=== PATIENT | female | born 1945 | race Caucasian/White ===

== ENCOUNTER 2025-03-15 23:10 | Inpatient (IN) | payer MEDICARE, SELFPAY ==
[2025-03-15] VITALS (7 sets, daily range): BP systolic 124–149; BP diastolic 56–78; BMI 37.2
[2025-03-15 16:30] LABS: Hematocrit 37.7 % (37.0-47.0); Hemoglobin 12.7 g/dL (12.0-16.0); Mean Corp Hgb Conc. 33.7 g/dL (33.0-37.0); Mean Corpuscular Volume 93.3 fL (81.0-99.0); Nucleated Red Blood Cells % 0 %; Platelet Count 170 10^3/uL (130-400); Red Cell Dist. Width 13.6 % (11.5-14.5)
[2025-03-15 16:53] LABS: Troponin I < 0.012 ng/ml
[2025-03-15 17:03] LABS: ALT (SGPT) 20 U/L (0-35); AST (SGOT) 20 U/L (14-36); Albumin 4.3 g/dl (3.5-5.0); Alkaline Phosphatase 69 U/L (38-126); Blood Urea Nitrogen 20 mg/dl (7-17); Calcium 9.8 mg/dl (8.4-10.2); Carbon Dioxide 27 mmol/L (22-30); Chloride 110 mmol/L (98-107); Glucose 83 mg/dl (70-99); Potassium 4.5 mmol/L (3.5-5.1); Sodium 141 mmol/L (135-145); Total Protein 7.0 g/dl (6.3-8.2); eGFR > 60.00
--- NOTE | 2025-03-15 20:19 | ED.GENMED ---
Addendum entered and electronically signed by Joseph Wade PA-C 03/16/25 00:23:
Patients PCP responded back via [employer] following admission. Quick background, she has had a chronic left upper lobe atelectasis and LA has been biopsy in the past. This is not new left upper lobe is completely obstructed and fibrotic > 3
years.Due to increase in size of the finding, she�s already scheduled to complete a PET as an outpatient.
Happy to talk to Pulm just let me know is seeing her. Please feel free to reach out on my cell [phone].
Original Note:
History of Present Illness
General
Chief Complaint: Swelling
Source: patient
Time Seen by Provider: 03/15/25 18:11
History of Present Illness
History of Present Illness:
79-year-old female with past medical history of Parkinson's disease presenting to the ER at the request of cardiothoracic surgery for evaluation after patient had echocardiogram and outpatient facility 2 days ago which showed a moderate to large
pericardial effusion, based off previous CT imaging in the past there was questionable concern for lung cancer and patient had noted worsening shortness of breath with intermittent lightheadedness so patient was advised to come to the ER to be
further evaluated with plan for admission and further evaluation with cardiothoracic surgery. At time of my exam patient states she overall feels pretty well, denies any chest pain, current shortness of breath, diaphoresis, lower extremity edema,
abdominal pain, nausea, vomiting. She cannot recall any recent illnesses, fevers or infectious symptoms. She denies any abnormal weight loss, night sweats. Patient does note for a while she had been dealing with pneumonia which she believes was
the abnormalities found on previous CT imaging and not masses/malignancy.
Past History
Past History
ED Past Medical History: Other (Parkinson's disease)
ED Past Surgical History: Brain
Social History
Tobacco: Non-smoker
Alcohol: Occasional
Drug: None
Personal:
Living: with family
Review of Systems
Review of Systems
All Other Systems: ROS reviewed and negative except as documented in HPI and ROS
Phy Exam
Physical Exam
Physical Exam:
GENERAL: Alert , in no apparent distress
EYE: conjunctiva clear
NECK: Supple, no significant adenopathy.
ENT: o/p clr, mmm.
CARDIAC: Regular rate and rhythm
LUNGS: Clear breath sounds bilaterally, no acute respiratory distress, no wheezes/rales/rhonchi
NEUROLOGICAL: Alert and oriented
SKIN: Warm and dry, skin intact.
MUSCULOSKELETAL: well perfused. Trace ankle edema, nonpitting
PSYCH: Normal and appropriate interaction.
Scores
Heart Failure Risk
Heart Failure Risk Score: Not Applicable
Heart Score for Chest Pain Patients
STEMI patient?: Not applicable
Withdrawal Assessment of Alcohol
Withdrawal Assessment Completed?: Not applicable
Course
Orders/Labs/Results
Orders:
Orders
03/15/25 16:03
Electrocardiogram (*1) Urgent
Reason for Study: Shortness of Breath
03/15/25 16:04
EKG- Treatment ONCE
03/15/25 16:22
CMP [Comprehensive Metabolic Panel] Urgent
Complete Blood Count/With Diff Urgent
NT-proBNP Urgent
Troponin I Urgent
03/15/25 18:13
CT Chest PE Study Urgent
Comment:
Reason For Exam: SOB,. ?lung cancer, known pericardial effusion,ARITA
Abnormal Lab Results
03/15/25
16:22
RBC 4.04 L 10^6/uL
(4.20-5.40)
MCH 31.4 H pg
(27.0-31.0)
Absolute Monos (auto) 0.7 H 10^3/uL
(0.1-0.6)
Lymphocytes % 20.3 L %
(20.5-51.1)
Monocytes % 12.2 H %
(1.7-9.3)
Eosinophils % 9.5 H %
(0-6)
Chloride 110 H mmol/L
(98-107)
BUN 20 H mg/dl
(7-17)
03/15/25 16:22
03/15/25 16:22
Vital Signs
Initial and Last Documented VS:
Initial Vital Signs
Temp Pulse Resp BP Pulse Ox
97.8 F 76 16 139/68 97
03/15/25 15:56 03/15/25 15:56 03/15/25 15:56 03/15/25 15:56 03/15/25 15:56
Last Documented Vital Signs
Temp Pulse Resp BP Pulse Ox
97.8 F 78 20 145/61 97
03/15/25 15:56 03/15/25 21:11 03/15/25 21:11 03/15/25 21:11 03/15/25 21:11
MDM/Problems Addressed
Differential Diagnosis Includes:
Pericardial Effusion
Tamponade
PE
Myocarditis
Pericarditis
Malignancy
Pneumonia
Viral syndrome
MDM/Problems Addressed:
79-year-old female presenting to the ER for evaluation of moderate to large pericardial effusion found on echocardiogram [address] surgery sent patient to the ER for further evaluation/imaging with plan for admission and will evaluate the
patient tomorrow for possible intervention. That may patient presently hemodynamically stable and in no acute distress and overall very well-appearing. Based off her symptoms/presentation will order CTA of the chest to rule out PE or other
pulmonary source. Cardiothoracic surgery was notified that patient did arrive to the emergency department and they will evaluate the patient in the morning. Disposition pending following CT imaging
*Radiology
Radiology exam reviewed: radiology read reviewed
*Pulse Oximetry
SaO2: 98
Oxygen Mode of Delivery: Room air
Patient hypoxic: no
*EKG
Heart Rate: 75
Rate: normal
Rhythm: sinus
*Slot Floorman Interpretation
Rate: normal
Rhythm: sinus
*Critical Care Note
Total Time (30-74mins, 75-104mins- exclusive of procedures): Not Applicable
Data Reviewed
Review of Other/Old Records Reveals: Labs, Records and Radiology Studies
Source: patient, records and physician
Patient Management
Discussion with other providers: Hospitalist, PCP and Line Builder
Escalation/DeEscalation of care consider admission/obs:
CT findings noted and discussed with the patient. Will likely need pulm consult and possible bronchoscopy for further evaluation. Notified CT surgery about CTA findings. Hospitalist team accepts for admission. PCP was also notified of findings
ED Attending Note
-
Portions of this chart may have been created with voice recognition software.� Occasional wrong word or��sound alike� substitutions may have occurred due to the inherent limitations of voice recognition software.
Discharge Plan
Departure
Patient Disposition: Admit
Date of Disposition: 03/15/25
Time of Disposition: 21:56
Presentation/result/management discussed w/ accepting MD/DO: Hospitalist
Discharge Problem:
Lung mass, Pericardial effusion
Referrals:
Bessie Monte DO [Family Provider, Internal Medicine]
Interventions
Interventions:
*Risk Screen - Suicide Last Done: 03/15/25 15:56
*General Assessment Last Done: 03/15/25 18:49
*Neglect/Abuse Screening Last Done: 03/15/25 15:56
*ED- Fall Risk Assessment Last Done: 03/15/25 18:49
*ED COVID-19 Vaccine History Last Done: 03/15/25 18:49
ED- Cardiac Assessment Last Done: 03/15/25 18:30
ED- Pulmonary Assessment Last Done: 03/15/25 18:30
ED-Skin Assessment Last Done: 03/15/25 18:30
Discharge Date and Time
Print Language: [place]LAND[place]
--- NOTE | 2025-03-15 22:35 | HPS.HSE ---
Addendum entered and electronically signed by Serge Gramajo DO 03/15/25 23:24:
Patient seen and examined independently. Agree with findings and plan as set forth by Siri Nagel PA-C.
Patient is a 79y F with PMH significant for Parkinson's disease who presents to ED for evaluation of abnormal Echo. Patient reports recent development of LE edema and some mild lightheadedness with activity. Patient underwent an outpatient Echo
which showed large pericardial effusion. She was referred to the ED for further evaluation and treatment. Patient denies any chest pain, cough, fevers or chills. CT scan was done in the ED this evening which shows large L mediastinal mass with
encasement of L pulmonary artery and upper lobe bronchus.
Ass:
Mediastinal Mass with Encasement of L Pulmonary Artery and Collapse of ALISHA
Large Pericardial Effusion
Parkinson's Disease
GERD
Plan:
Admit for further evaluation and treatment.
Send to [facility] for prior imaging / records.
History indicates ALISHA abnormality / mass dating back at last to 2021.
Pulmonary evaluation for additional recommendations.
Tissue biopsy with FOB versus IR.
Oncology evaluation.
CT Surgery consulted re: pericardial effusion. Hemodynamically stable at present.
Likely related to apparent malignant hilar / mediastinal process.
Original Note:
Family Physician
-
Family Physician: Bessie Monte
Chief Complaint
-
Lower Extremity Edema
History of Present Illness
Patient is a 79 y/o female past medical history of Parkinson's Disease and GERD who presents with lower extremity edema. Patient reports she recently started with increasing lower extremity. She was undergoing work-up which included an
echocardiogram. Patient was notified that she had a large pericardial effusion and was instructed to come to the emergency department for evaluation. Patient reports she occasional with have to stop and catch her breath but notes it very rare. She
denies any chest pain or palpitations.
Medical History
Past Medical History
Past Medical History: Reports Other
Additional Past Medical History:
Parkinson's Disease
GERD
Past Surgical History: Reports Other
Additional Past Surgical History:
Deep Brain Stimulator
Social History
Tobacco: Non-smoker
Alcohol: None
Personal:
Living: With Family
Family History
Family History: Not pertinent
Allergies / Home Medications
Allergies reflects when Allergies were last updated in [facility].
Home Medications with original date entered in [facility]
Allergy/Medication List:
Allergies
Allergy/AdvReac Type Severity Reaction Status Date / Time
No Known Allergies Allergy Unverified 03/15/25 15:55
Home Medications
furosemide 40 mg tablet 40 mg PO DAILYPRN PRN Edema 03/15/25
pantoprazole 40 mg tablet,delayed release 40 mg PO DAILY 03/15/25
Review of Systems
-
A 12 point ROS was completed and negative except as noted: Yes
Constitutional: Denies Fever or Weight Loss
Respiratory: Denies Cough
Cardiac: Denies Chest Pain or Palpitations
Physical Exam
Vital Signs
Vital Signs
Temp Pulse Resp BP Pulse Ox
97.8 F 76 21 132/72 98
03/15/25 15:56 03/15/25 22:15 03/15/25 22:15 03/15/25 22:00 03/15/25 22:00
Physical Exam
General: Comfortable and Conversant
HEENT: Anicteric and Moist mucous membranes
Respiratory: Clear and Non Labored Respirations
Cardiac: S1/S2 and Regular Rhythm
GI: Soft and Non Tender
Musculoskeletal: No Clubbing, No Cyanosis and Other (+2 pitting edema bilateral lower extremities)
Skin: Warm and Dry
Neuro: Awake, Alert, Oriented and Nonfocal/grossly intact
Psych: Calm
Laboratory Results
-
03/15/25 16:22
03/15/25 16:22
Laboratory Results
Total Bilirubin 0.6 mg/dl (0.2-1.3) 03/15/25 16:22
AST 20 U/L (14-36) 03/15/25 16:22
ALT 20 U/L (0-35) 03/15/25 16:22
Alkaline Phosphatase 69 U/L (38-126) 03/15/25 16:22
Troponin I < 0.012 ng/ml 03/15/25 16:[address] Scan:
No CTA evidence for an acute pulmonary thromboembolism.
Soft tissue mass centered at the left hilum in keeping with the reported history of lung cancer. This shows direct invasion into the left lateral mediastinum, encasement of the left main pulmonary artery, and occlusion of the left upper lobe
bronchi. Recommend direct correlation with previous outside imaging of the chest, which is not currently available.
Complete atelectasis of the left upper lobe.
Mediastinal lymphadenopathy, which is presumably metastatic.
Large pericardial effusion.
Data Reviewed
-
CT Scan: Report Reviewed by me
Lab Data: Labs Reviewed by me
Impression/Plan
-
Hilar Soft Tissue Mass with encasement of left main pulmonary artery and left upper lobe bronchi
Large Pericardial Effusion
-Consult CT Surgery, Pulmonary and Oncology
-Patient will likely need biopsy for diagnosis
-Check echocardiogram
-Attempt to obtain records from [facility] including echo from earlier this week and any prior Chest CTs
Parkinson's Disease s/p Deep Brain Stimulator
-Stable
GERD
-Continue Protonix
DVT proph: SCDs
Code Status: Full Code
[2025-03-16] VITALS (7 sets, daily range): BP systolic 93–133; BP diastolic 43–69; BMI 36.7
--- NOTE | 2025-03-16 01:45 | PTCARENOTE ---
Pt stood and pivoted from stretcher to bed upon arrival from ED. denies SOB. AAOx3. admission questions completed. NSR on monitor. trace lower extremity edema. call light in reach.
--- NOTE | 2025-03-16 06:36 | W.PN.UPDATE ---
Update Note
Progress Note Update
CARDIAC SURGERY ATTENDING:
(Full consult to follow)
It was my pleasure to meet with Mrs. Obdulia Black and her briefly in the ED. I have reviewed her CT scan. She has a large pericardial effusion with essentially all of the fluid being located posteriorly. There is very limited fluid on
the diaphragmatic and anterior surface of the pericardium. On the CT scan, the fluid appears homogenous. I will ask my cardiology and interventional radiology colleagues to evaluate for catheter-based drainage. Although there is some chronicity
to her mediastinal mass, this mass is encasing her left pulmonary artery and has resulted in collapse of her left upper lobe. It is significantly concerning for cancer despite her protracted history of obstructive and fibrotic left upper lobe
(greater than 3 years) with prior negative biopsies.
If catheter-based drainage is not deemed possible, I would consider subxiphoid pericardial window. It is my belief that this pericardial effusion is likely related to her left upper lobe process. PET scan and consideration for repeat biopsy should
be entertained.
Will continue to follow closely.
Thank you.
Joseph Dangelo MD
[2025-03-16] MEDS: PROTONIX 40 MG PO (07:34)
[2025-03-16 08:08] LABS: Hematocrit 38.2 % (37.0-47.0); Hemoglobin 12.8 g/dL (12.0-16.0); Mean Corp Hgb Conc. 33.5 g/dL (33.0-37.0); Mean Corpuscular Volume 94.3 fL (81.0-99.0); Nucleated Red Blood Cells % 0 %; Platelet Count 167 10^3/uL (130-400); Red Cell Dist. Width 13.7 % (11.5-14.5)
[2025-03-16 08:19] LABS: ALT (SGPT) 20 U/L (0-35); AST (SGOT) 20 U/L (14-36); Albumin 4.2 g/dl (3.5-5.0); Alkaline Phosphatase 61 U/L (38-126); Blood Urea Nitrogen 18 mg/dl (7-17); Calcium 9.8 mg/dl (8.4-10.2); Carbon Dioxide 29 mmol/L (22-30); Chloride 108 mmol/L (98-107); Estimated Creatinine Clearance 81 ml/min; Glucose 111 mg/dl (70-99); Potassium 4.4 mmol/L (3.5-5.1); Sodium 141 mmol/L (135-145); Total Protein 6.8 g/dl (6.3-8.2); eGFR > 60.00
[2025-03-16 08:20] LABS: INR 1.04; PT 14.1 Sec (11.4-14.6)
--- NOTE | 2025-03-16 09:18 | CON.PUL ---
Consultation
Consultation Request
Date/Time Consultation Requested: 03/16/25
Date/Time Consultation Performed: 03/16/25
Performing Provider: Breanna
Reason for Consultation: Hilar Mass
Medical History
-
History of Present Illness:
Patient is a 79-year-old female with previous history of Parkinson's disease, GERD presenting to ER for evaluation of abnormal echocardiogram. She had previously been complaining of lower extremity edema and lightheadedness with activity. She
had undergone outpatient echo with large pericardial effusion, sent to the ER. CT scan was done in the ED revealing large left-sided mediastinal mass with encasement of left pulmonary artery. She was previously seen at [facility] and prior
records indicate that this mass may have been evident dating back to 2021.
Per son, the patient does follow with Dr. La at [facility]. She underwent bronchoscopy some years ago and was biopsied negative. He notes that on prior CT scans there was disease in left upper lobe but he is not sure to what extent. He notes
that there was prior calcifications noted as well. Prior CT scans are unavailable for me to review. He does that the patient has had more progressive shortness of breath recently and lower extremity edema.
She is a lifelong non-smoker, denies family history of lung cancer. She has not been as compliant with her routine cancer screening including colonoscopies. Her last and only colonoscopy was at age 51. She has since stopped receiving mammograms
based on her age.
Past Medical History
Past Medical History: Other (see list below)
Social History
Tobacco: Non-smoker
Alcohol: None
Drug: None
Family History
Family History: Reviewed & Not Pertinent
Allergies / Home Medications
Allergies
Allergy/AdvReac Type Severity Reaction Status Date / Time
No Known Allergies Allergy Unverified 03/15/25 15:55
Home Medications
�Medication �Instructions �Recorded �Confirmed �Last Taken �Type
furosemide 40 mg tablet 40 mg PO DAILYPRN PRN Edema 03/15/25 03/15/25 Unknown History
pantoprazole 40 mg tablet,delayed 40 mg PO DAILY Gastrointestinal 03/15/25 03/15/25 Unknown History
release Issue
Review of Systems
-
History Source: Patient
All other systems: Negative unless noted
Vitals / Labs / Diagnostic Testing
Vital Signs
Temp Pulse Resp BP Pulse Ox
97.8 F 78 24 133/61 98
03/16/25 07:00 03/16/25 07:15 03/16/25 07:15 03/16/25 07:11 03/16/25 07:11
Lab Data
03/16/25 07:53
03/16/25 07:53
Laboratory Results
03/16/25
07:53
PT 14.1
INR 1.04
Diagnostic Testing:
Physical Exam
-
HEENT: Normocephalic, Anicteric and Moist Mucous Membranes
Cardiovascular: S1/S2 and Regular Rhythm
Respiratory: Clear and Non-Labored Respirations
GI: Soft, Non Distended and Non Tender
Neurology: Awake, Alert, Oriented and No Motor Deficits
Skin: Warm, Dry and Good Color
General: Comfortable and Other (NAD)
Assessment
-
Patient is a 79-year-old female with previous history of Parkinson's disease, GERD presenting to ER for evaluation of abnormal echocardiogram. She had previously been complaining of lower extremity edema and lightheadedness with activity. She
had undergone outpatient echo with large pericardial effusion, sent to the ER. CT scan was done in the ED revealing large left-sided mediastinal mass with encasement of left pulmonary artery. We are consulted for evaluation 03/16/25.
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
Large pericardial effusion
Suspected primary lung malignancy
Conditions present prior to admission
Parkinson's disease
GERD
Obesity
Plan
No oxygen was needed on admission, currently saturating >90% on RA
Prior history of lung disease is noted including--known history of ALISHA disease dating back as far as 2021, but stated could be about 10 years ago but they do not recall what was present then
Per son, the patient does follow with Dr. La at [facility]. She underwent bronchoscopy some years ago and was biopsied negative.
He notes that on prior CT scans there was disease in left upper lobe (ongoing) but he is not sure to what extent. He notes that there was prior calcifications noted as well.
Prior CT scans are unavailable for me to review. He does that the patient has had more progressive shortness of breath recently and lower extremity edema.
She is a lifelong non-smoker, denies family history of lung cancer.
She has not been as compliant with her routine cancer screening including colonoscopies. Her last and only colonoscopy was at age 51.
She has since stopped receiving mammograms based on her age.
Suspect patient has primary lung malignancy, based on calcifications could be NSCLC
ECHO obtained showing pericardial effusion, agree with drainage per CT which can be sent for cyto and staging
CTS following
CT obtained indicating enlarged mediastinal mass with obstruction of ALISHA and encasement of PA
I reviewed this with family--she would be a good candidate for stent placement and tumor debulking but given the complexity and nature of the mass, she would do well with tertiary referral for interventional evaluation. Her outpatient black top roller
is also an interventionalist, I will review the case with her to see if she prefer to patient transferred back to [facility]
Call placed, awaiting call back
Will need outpatient pulmonary evaluation for further steps including PET/CT
Reviewed with patient and family extensively at bedside, reviewed with care team as well
We will follow
Diagnostic Data
Chest X-Ray:
CT Scan: CHEST- Large soft tissue mass centered at the left hilum measuring 10.9 x 8.0 x 7.2 cm. This invades the left lateral aspect of the mediastinum and encases the left main pulmonary artery with resultant narrowing of the segmental and
subsegmental branches. The tumor occludes the left upper lobe bronchi and results in complete atelectasis/collapse of the left upper lobe. Extrinsic narrowing of the left lower lobe bronchi. No pleural effusion or pneumothorax. Subsegmental
atelectasis in the left lower lobe.
Echo:
PFT's:
Reports and relevant images were personally reviewed.
Total time spent on this consultation __80__ minutes which includes review of history, physical exam, medications, laboratory data, personal review of imaging, extensive review of outpatient records, discussion with care team and respiratory therapy.
--- NOTE | 2025-03-16 10:12 | CONSULT.CT ---
Consultation
-
Date/Time Consultation Requested: 03/16/25
Date/Time Consultation Performed: 03/16/25 10:15
Requesting Provider: Siri Nagel PA-C
Performing Provider: Neelam Pringle PA-C
Reason for Consultation: Large pericardial effusion, mediastinal mass
Patient History
Physicians
Family Physician: Dr. Bessie Monte MD.
Outpatient Delivery Aide: None
History of Present Illness
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
presented to [facility]'s emergency department on 03/15/2025.
Patient had an outpatient echocardiogram performed at [facility] and returned home. After echocardiogram was read a large pericardial effusion was seen without evidence of tamponade physiology. Patient was phoned and told to go to the
nearest emergency department. She has also been experiencing increasing lower extremity edema left greater than right. At this point patient presented to [facility]'s emergency department as stated above.
Further workup in the emergency department via CAT scan revealed no evidence of PE, large pericardial effusion, mediastinal mass invading into the left lateral mediastinum with encasement of the left main pulmonary artery and occlusion of the left
upper lobe bronchi causing complete atelectasis of the left upper lobe. Based on findings high suspicion for metastatic disease is suspected.
Patient was admitted for further workup. Subsequent consult to CT surgery was placed regarding large pericardial effusion and mediastinal mass occluding the left upper lobe bronchi.
Past Medical History
Parkinson's disease status post deep brain stimulator
GERD
Multiple pneumonias
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
Past Surgical History
Deep brain stimulator implanted in 2021 secondary to Parkinson's disease
Bronchoscopy 2018 performed at [facility]
Dental History
Noncontributory
Family History
Mother: at Age (83) and Cause of (Complications with CHF, also suffered with breast cancer)
Father: at Age (100) and Cause of (Natural causes)
Family Medical History: Cancer (Mother-breast)
Social History
Alcohol: None
Drug: None
Tobacco: Non-Smoker
Personal:
Living: With Spouse (Has 3 children)
Employment: Retired (Formally worked as a teacher)
Allergies
Allergy/AdvReac Type Severity Reaction Status Date / Time
No Known Allergies Allergy Unverified 03/15/25 15:55
Home Medications
�Medication �Instructions �Recorded �Confirmed �Type
furosemide 40 mg tablet 40 mg PO DAILYPRN PRN Edema 03/15/25 03/15/25 History
pantoprazole 40 mg tablet,delayed 40 mg PO DAILY Gastrointestinal 03/15/25 03/15/25 History
release Issue
Review of Systems
-
History Source: Patient
General: Denies Fever, Weight Gain, Weight Loss or Fatigue
HEENT: Denies Visual Changes, Dysphagia, Hoarseness or Sore Throat
Respiratory: Reports SOB and ARITA; Denies Asthma or PND
Cardiac: Reports Edema; Denies Chest Pain, CAD, Palpitations, Nausea, Vomiting or Diaphoresis
Abdomen/GI: Reports Reflux; Denies Abdominal Pain, Indigestion, Nausea, Vomiting, Constipation or BRBPR
: Denies Dysuria, Frequency, Incontinence, Urgency or Hematuria
Musculoskeletal: Reports Edema; Denies Myalgias or Arthralgias
Skin: Denies Itching or Rash
Neurological: Reports Dizzy; Denies CVA, TIA, Headaches, Syncope, Weakness or Seizures
Vascular: Denies Claudication or PVD
Physical Exam
Vital Signs
Temp 97.8 F 03/16/25 07:00
Temp route: Oral 03/16/25 07:00
Pulse 78 03/16/25 07:15
Rhythm: Normal sinus rhythm 03/16/25 01:32
Resp Rate 24 03/16/25 07:15
Blood pressure 133/61 03/16/25 07:11
Blood pressure extremity used: Left upper arm 03/15/25 23:35
Position: Lying 03/15/25 23:35
MAP (cuff-Shade Monitor) 80 03/16/25 07:11
SaO2 98 03/16/25 07:11
Oxygen Mode of Delivery Room air 03/16/25 01:32
Acceptable pain level during hospitalization? 0 03/15/25 15:56
Can the patient verbally communicate their pain? Yes 03/16/25 01:32
Actual Weight 200 lb 5 oz 03/16/25 00:21
Body Mass Index (BMI) 36.7 03/16/25 00:21
Labs
03/16/25 07:53
03/16/25 07:53
PT 14.1 Sec (11.4-14.6) 03/16/25 07:53
Troponin I < 0.012 ng/ml 03/15/25 16:22
Hef-O-Snkvxhxqlzm Pept 106 pg/ml 03/15/25 16:22
Diagnostic Studies
CT PE Study: 03/15/25
No CTA evidence for an acute pulmonary thromboembolism.
Soft tissue mass centered at the left hilum in keeping with the reported history of lung cancer. This shows direct invasion into the left lateral mediastinum, encasement of the left main pulmonary artery, and occlusion of the left upper lobe
bronchi. Recommend direct correlation with previous outside imaging of the chest, which is not currently available.
Complete atelectasis of the left upper lobe.
Mediastinal lymphadenopathy, which is presumably metastatic.
Large pericardial effusion.
Exam
General: Well Developed, Well Nourished, No Apparent Distress and Comfortable
HEENT: Normocephalic, Moist Mucous Membranes, Atraumatic, PERRLA and EOMI
Neck: Trachea Midline; Negative Carotid Bruit
Respiratory: Clear; Negative Wheezes, Crackles, Rhonchi or Accessory Muscle Use
Cardiac: S1/S2 and Regular Rhythm (/Sinus bradycardia ); Negative Murmur, Rub or Gallop
GI: Soft, Non Tender, Non Distended and Normal Bowel Sounds
Rectal: Deferred by Provider
Skin: Warm and Dry; Negative Rash
Neuro: AO x 3, No Motor Deficits and CN X-XII Intact
Extremities: Lower Level Edema (+2-3 L>R); Negative Upper Level Edema, Upper Level Cyanosis, Lower Level Cyanosis, Upper Level Clubbing or Lower Level Clubbing
Psych: Calm
Assessment / Plan
-
Assessment:
79-year-old female with PMH significant for:
Parkinson's disease status post deep brain stimulator
GERD
Multiple pneumonias
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
Now with newly diagnosed:
Large pericardial effusion
Mediastinal mass with encasement of left pulmonary artery and collapse of left upper lobe
Plan:
Patient's case was discussed with attending physician
Recommend drainage of pericardial effusion via catheter approach by cardiology/interventional radiology. Sending fluid for cytology and sampling.
Pulmonary and oncology workup
Tissue biopsy via bronchoscopy versus interventional radiology.
CT surgery will follow closely and remain available if catheter-based drainage is unsuccessful
--- NOTE | 2025-03-16 11:27 | W.PN.HOSP.TC ---
Addendum entered and electronically signed by Charla Hoskins MD 03/16/25 14:53:
I saw and evaluated the patient independently. I reviewed the resident�s note and agree with findings and plan as documented by Dr. Alves.
GENERAL: well developed, well nourished, female in no apparent distress--getting bedside echo
HEENT: NC/AT
HEART: regular rate and rhythm, +S1, +S2--distant heart hounds
LUNGS : clear to auscultation bilaterally anteriorly--limited
ABDOM: soft, nontender, nondistended, + bowel sounds
EXT: no cyanosis, clubbing-- 2+ LE edema pitting bilaterally--tender to touch
NEUROLOGIC: grossly intact
Pericardial effusion as seen on CT 03/15/2025 and outpatient echo--etiologies include possible malignancy (does have mass discussed below), infection, heart failure, rheumatologic, etc--apprec CT surgery--await bedside echo result--apprec IR--for
drainage 03/17/25 and cultures/cytology etc--would recommend the following: if path + then needs ONC for treatment options; if path - then would recommend transfer to [place] for upper lobe resection--'mass' could be worsening fibrotic
tissue/calcifications from previous recurrent pneumonias--bronch and/or direct biopsy would be difficult given discussion with all appropriate parties
History of multiple pneumonias with History of lung/mediastinal mass--pt does not have known lung cancer--in fact, multiple samples done as outpt have been neg--apprec pulm/IR--would attempt to obtain previous records from [facility]- Patient will have to
have PET outpatient in coordination with her outpt interventional architect manager--we do not do as inpatient, so will need to be rescheduled--further direction pending path as discussed above
GERD- Continue pantoprazole 40 mg p.o. daily
Parkinson's disease s/p deep brain stimulator--continue to monitor
DVT proph--SCDs
CODE STATUS-- Full code
Original Note:
Today's Communication/Plan
-
N.p.o. at midnight tonight in preparation for IR drainage of large pericardial effusion tomorrow 03/17/2025
Appreciate recs from our consultants: Pulmonology, oncology, cardiothoracic surgery, IR
Awaiting outside hospital records
Assessment / Plan
Assessment / Plan
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
03/15/2025 per recommendation from cardiac surgery after an outpatient echo at [facility] showed a large pericardial effusion. Other than increasing bilateral lower extremity 1+ edema, she is asymptomatic. CT chest 03/15/2025 findings
below. Cardiac surgery, IR, pulmonology, and oncology are following for management.
Chest CT 03/15/2025:
No CTA evidence for an acute pulmonary thromboembolism.
Soft tissue mass centered at the left hilum in keeping with the reported history of lung cancer. This shows direct invasion into the left lateral mediastinum, encasement of the left main pulmonary artery, and occlusion of the left upper lobe
bronchi. Recommend direct correlation with previous outside imaging of the chest, which is not currently available.
Complete atelectasis of the left upper lobe.
Mediastinal lymphadenopathy, which is presumably metastatic.
Large pericardial effusion.
#Pericardial effusion as seen on CT 03/15/2025 and outpatient echo
#Shortness of breath on exertion, transient
#History of multiple pneumonias
#History of lung cancer/mediastinal mass
Etiology for her pericardial effusion is most likely related to her known cancer, however could also be infectious, rheumatic, or cardiac in nature. Given that she is stable and asymptomatic currently, we will continue to monitor on telemetry until
her effusion can be drained by IR. We will also seek to obtain outside records and hold diuresis until s/p drainage.
- Cardiothoracic surgery, oncology, pulmonology, and IR following: Appreciate recs
--IR planning for catheter-based drainage tomorrow 03/17/2025
---NPO at midnight, patient not on AC
- Follow-up echo
- Follow-up repeat EKG
- Obtain outside records
- Note: We will not diurese, given high risk for post diuresis decreased cardiac output ISO known large pericardial effusion.
- Patient will have to have PET outpatient in coordination with her oncologist.
#GERD
- Continue pantoprazole 40 mg p.o. daily
#Parkinson's disease s/p deep brain stimulator
- Nothing to do, continue to monitor
DVT prophylaxis: SCDs
CODE STATUS: Full code
Anticipated Discharge: 24 - 48 hours (Pending pericardial effusion drainage and management)
Subjective/Interval History
-
Date of Service: March 16, 2025
-This morning, she is sitting comfortably in her chair with her Tab at bedside. She denies chest pain, dizziness, shortness of breath, lightheadedness, N/V, pain, or any other symptoms.
-In conversation with cardiothoracic surgery and IR, plan is to have a repeat echo inpatient today and place an IR drain for her pericardial effusion tomorrow at noon. This was relayed to the patient. She will be n.p.o. at midnight.
Objective Data
-
Labs:
Laboratory Results
03/16/25 03/16/25
07:53 10:41
WBC 5.2
Hgb 12.8
Hct 38.2 Pending
Plt Count 167
PT 14.1
INR 1.04
Sodium 141
Potassium 4.4
Chloride 108 H
Carbon Dioxide 29
BUN 18 H
Creatinine 0.6
Glucose 111 H Pending
Calcium 9.8
Total Bilirubin 0.8
AST 20
ALT 20
Alkaline Phosphatase 61
Vital Signs:
Vital Signs
Temp Pulse Resp BP Pulse Ox
97.8 F 62 13 131/60 98
03/16/25 11:08 03/16/25 10:15 03/16/25 10:15 03/16/25 10:00 03/16/25 10:15
I&O
03/15/25 03/16/25 03/17/25
06:59 06:59 06:59
Intake Total 720 / 720
Balance 720 / 720
Review of Systems
-
All other systems: Reviewed and negative
Musculoskeletal: Reports Edema (Bilateral lower extremity 1+ edema)
Physical Exam
-
General: Well Developed, Well Nourished, No Apparent Distress, Comfortable and Conversant
HEENT: Normocephalic, Atraumatic and Moist Mucous Membranes
Respiratory: Clear to Auscultation and Non Labored Respirations
Cardiac: Regular Rhythm and S1/S2
GI: Soft, Nontender and Nondistended
Musculoskeletal: No Clubbing, No Cyanosis, Edema, Right Lower Extrem and Edema, Left Lower Extrem
Skin: Warm and Dry
Neuro: AO x 3
Psych: Calm and Intact Judgement/Insight
Data Reviewed
-
CT Scan: Discussed with Physician
--- NOTE | 2025-03-16 11:54 | PTCARENOTE ---
Patient AAOx3, VSS. Up in chair eating with family. Patient making needs known, no complaints. Will continue to closely monitor.
[2025-03-16 13:11] LABS: Uric Acid 5.4 mg/dl (2.5-6.2)
--- NOTE | 2025-03-16 13:29 | CON.ONC ---
Consultation
-
Date Consultation Requested: 03/16/25
Date Consultation Performed: 03/16/25
Requesting Provider: Dr. Charla Hoskins
Performing Provider: Dr. Timothy Spence
Reason for Consultation: Hilar mass
Impression
Impression
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
Large pericardial effusion
Plan
Plan
Pt is considering intervention with Dr. Bessie Monte [facility] for stent and tumor debulking -appreciate pulmonary input
We will follow for pathology
Patient History
History of Present Illness
79yo F who presented after her OP echocardiogram at [facility] due to large pericardial effusion w/o tamponade. She had been undergoing evaluation for LE edema that has been ongoing for several months. Her CAT scan revealed no evidence of PE, however,
did show a large pericardial effusion, mediastinal mass invading into the left lateral mediastinum with encasement of the left main pulmonary artery and occlusion of the left upper lobe bronchi causing complete atelectasis of the left upper lobe.
She has been admitted for further evaluation. She has no hypoxia or tachycardia. Her CBC and CMP are without significant abnormalities.
Clinically, she denies fever, chills, cough, sob, alnais, chest pain, palpitations, n/v/d/c or abdominal pain. She denies unintentional weight loss, changes in appetite, or changes in bowel patterns. She denies any headache or neurological changes from
her baseline parkinson. She does have a brain stimulator but can have MRIs if she 'turns it off.'
Past-Medical/Surgical History
PMH Parkinson's disease, GERD
PSH brain stimulator
Social never smoker, denies ETOH or recrational drugs, retired teacher, lives with
family mother with breast cancer
Patient Medication
�Medication �Instructions �Recorded �Confirmed �Last Taken �Type
furosemide 40 mg tablet 40 mg PO DAILYPRN PRN Edema 03/15/25 03/15/25 Unknown History
pantoprazole 40 mg tablet,delayed 40 mg PO DAILY Gastrointestinal 03/15/25 03/15/25 Unknown History
release Issue
Active Medications
Generic Name Dose Route Start Last Admin
Trade Name Freq PRN Reason Stop Dose Admin
Acetaminophen 650 mg 03/16/25 00:27
Acetaminophen 325 Mg Tablet PO 04/13/25 00:26
Q4HPRN PRN
mild pain/ fever>100.5F
Pantoprazole Sodium 40 mg 03/16/25 08:00 03/16/25 07:34
Pantoprazole 40 Mg Delayed Release Tablet PO 04/13/25 07:59 40 mg
DAILY MAKI Administration
Review of Systems
-
ROS is notable for HPI, otherwise negative
Physical Exam
-
General: Well Nourished and No Apparent Distress
HEENT: Moist Mucous Membranes; Negative Jaundice
Cardiology: Normal Sinus Rhythm
Pulmonary: Clear
GI: Soft
Extremities: Pulses Present and Edema
Neurology: Non Focal
Skin: Warm
Psych: Calm
Labs
Lab Results
WBC 5.2 10^3/uL (4.8-10.8) 03/16/25 07:53
RBC 4.05 10^6/uL (4.20-5.40) L 03/16/25 07:53
Hgb 12.8 g/dL (12.0-16.0) 03/16/25 07:53
Hct 38.2 % (37.0-47.0) 03/16/25 07:53
MCV 94.3 fL (81.0-99.0) 03/16/25 07:53
MCH 31.6 pg (27.0-31.0) H 03/16/25 07:53
MCHC 33.5 g/dL (33.0-37.0) 03/16/25 07:53
RDW 13.7 % (11.5-14.5) 03/16/25 07:53
Plt Count 167 10^3/uL (130-400) 03/16/25 07:53
MPV 10.6 fL (7.4-10.4) H 03/16/25 07:53
Abs Immat Gran (auto) 0.0 10^3/uL (0-0.05) 03/16/25 07:53
Absolute Neuts (auto) 3.3 10^3/uL (1.4-6.5) 03/16/25 07:53
Absolute Lymphs (auto) 1.0 10^3/uL (1.2-3.4) L 03/16/25 07:53
Absolute Monos (auto) 0.5 10^3/uL (0.1-0.6) 03/16/25 07:53
Absolute Eos (auto) 0.5 10^3/uL (0-0.7) 03/16/25 07:53
Absolute Basos (auto) 0.0 10^3/uL (0-0.2) 03/16/25 07:53
Immature Gran % 0.2 % (0-0.5) 03/16/25 07:53
Neutrophils % 62.5 % (42.2-75.2) 03/16/25 07:53
Lymphocytes % 19.4 % (20.5-51.1) L 03/16/25 07:53
Monocytes % 8.7 % (1.7-9.3) 03/16/25 07:53
Eosinophils % 8.8 % (0-6) H 03/16/25 07:53
Basophils % 0.4 % (0-2) 03/16/25 07:53
Creatinine 0.6 mg/dL (0.6-1.0) 03/16/25 07:53
Vital Signs
Vital Signs
Temp Pulse Resp BP Pulse Ox
97.8 F 76 22 93/69 99
03/16/25 11:08 03/16/25 12:45 03/16/25 12:45 03/16/25 12:00 03/16/25 12:45
--- NOTE | 2025-03-16 14:03 | CM ---
Patient seen at IMU with physician and family present. Patient son Denver [phone] requested to be placed on contact list, patient confirmed she wanted that. Patient also present and confirmed that they live at [facility] in a
private home. Patient PCP is Dr. Bessie Phan and the [facility] on [address] [place] [address] in [place]. Patient plan is to return [place] [facility] when medically appropriate. CM will continue to follow for discharge planning needs.
Plan; pending medical treatment plan, TBD
[2025-03-16 14:32] LABS: LDH 186 U/L (120-246)
--- NOTE | 2025-03-16 21:00 | PTCARENOTE ---
assumed care of Pt after receiving change of shift report. Pt AA0x3. using call light accordingly. NSR on monitor. steady gait. assessment as documented. call light in reach.
[2025-03-17] VITALS (19 sets, daily range): BP systolic 65–146; BP diastolic 53–73; BMI 36.7
[2025-03-17 05:45] LABS: Hematocrit 36.4 % (37.0-47.0); Hemoglobin 12.2 g/dL (12.0-16.0); Mean Corp Hgb Conc. 33.5 g/dL (33.0-37.0); Mean Corpuscular Volume 94.8 fL (81.0-99.0); Platelet Count 162 10^3/uL (130-400); Red Cell Dist. Width 13.8 % (11.5-14.5)
[2025-03-17 06:08] LABS: Blood Urea Nitrogen 21 mg/dl (7-17); Calcium 9.2 mg/dl (8.4-10.2); Carbon Dioxide 25 mmol/L (22-30); Chloride 110 mmol/L (98-107); Estimated Creatinine Clearance 81 ml/min; Glucose 115 mg/dl (70-99); Magnesium 2.3 mg/dl (1.6-2.3); Potassium 4.5 mmol/L (3.5-5.1); Sodium 140 mmol/L (135-145); eGFR > 60.00
[2025-03-17] MEDS: PROTONIX 40 MG PO (08:25)
--- NOTE | 2025-03-17 09:22 | W.PN.PUL3 ---
Today's Communication / Plan
-
Extensive conversation wtih patient and son regarding next steps/potential options following procedure today, reviewed case and CT images with him personally
Agree with plan for pericardial fluid sampling, please send for cyto
They were in agreement for discharge planning post procedure observation
Outpatient FU with Dr La for next steps
Assessment
-
Patient is a 79-year-old female with previous history of Parkinson's disease, GERD presenting to ER for evaluation of abnormal echocardiogram. She had previously been complaining of lower extremity edema and lightheadedness with activity. She
had undergone outpatient echo with large pericardial effusion, sent to the ER. CT scan was done in the ED revealing large left-sided mediastinal mass with encasement of left pulmonary artery. We are consulted for evaluation 03/16/25.
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
Large pericardial effusion
Suspected primary lung malignancy
ARITA
Conditions present prior to admission
Parkinson's disease
GERD
Obesity
Plan
No oxygen was needed on admission, currently saturating >90% on RA
Prior history of lung disease is noted including--known history of ALISHA disease dating back as far as 2021, but stated could be about 10 years ago but they do not recall what was present then
Per son, the patient does follow with Dr. La at [place]. She underwent bronchoscopy some years ago and was biopsied negative. OP PET was reportedly negative
He notes that on prior CT scans there was disease in left upper lobe (ongoing) but he is not sure to what extent. He notes that there was prior calcifications noted as well.
Prior CT scans are unavailable for me to review. He does that the patient has had more progressive shortness of breath recently and lower extremity edema.
She is a lifelong non-smoker, denies family history of lung cancer.
She has not been as compliant with her routine cancer screening including colonoscopies. Her last and only colonoscopy was at age 51.
She has since stopped receiving mammograms based on her age.
Suspect patient has primary lung malignancy, based on calcifications could be NSCLC
ECHO obtained showing pericardial effusion, agree with drainage per CT which can be sent for cyto and staging
CTS following
IR consult for pericardial drain, send for cytology please
CT obtained indicating enlarged mediastinal mass with obstruction of ALISHA and encasement of PA
I reviewed this with family--she would be a good candidate for stent placement and tumor debulking but given the complexity and nature of the mass, she would do well with tertiary referral for interventional evaluation. Her outpatient fibre optic cable splicer
is also an interventionalist, I will review the case with her to see if she prefer to patient transferred back to [facility]
Reviewed case extensively with Dr La, IR, our team and hospitalist service. I then reviewed scenarios and options with son
Would recommend he obtain imaging to streamline within 1 health system--he will do that
They are in agreement for d/c planning post procedure and do not wish to stay here to wait for cyto results--we can call to let them know results when available
OP Onc follow up to be arranged as well
Will need outpatient pulmonary evaluation for further steps including PET/CT--to follow with Dr La
Reviewed with patient and family extensively at bedside, reviewed with care team as well
Discharge planning post procedure observation
Diagnostic Data
Chest X-Ray:
CT Scan: CHEST- Large soft tissue mass centered at the left hilum measuring 10.9 x 8.0 x 7.2 cm. This invades the left lateral aspect of the mediastinum and encases the left main pulmonary artery with resultant narrowing of the segmental and
subsegmental branches. The tumor occludes the left upper lobe bronchi and results in complete atelectasis/collapse of the left upper lobe. Extrinsic narrowing of the left lower lobe bronchi. No pleural effusion or pneumothorax. Subsegmental
atelectasis in the left lower lobe.
Echo:
PFT's:
Reports and relevant images were personally reviewed.
Total time spent on this consultation __58__ minutes which includes review of history, physical exam, medications, laboratory data, personal review of imaging, extensive review of outpatient records, discussion with care team and respiratory therapy.
Subjective Data
-
Date of Service:
Date of Service: March 17, 2025
Chief Complaint: Pulmonary Follow Up
Subjective:
No new complaints, stable on RA
and son at bedside
Planning for IR drain today
Objective Data
Data Reviewed
Vital Signs / I&O / Oxygen:
Vital Signs
Temp Pulse Resp BP Pulse Ox
97.5 F 60 19 109/57 100
03/17/25 07:20 03/17/25 02:15 03/16/25 13:00 03/17/25 02:00 03/17/25 03:14
Intake and Output
03/16/25 03/17/25 03/18/25
06:59 06:59 06:59
Intake Total 1620 / 1620
Balance 1620 / 1620
SaO2 100
Physical Exam
General: Comfortable and Other (NAD)
HEENT: Normocephalic, Anicteric and Moist Mucous Membranes
Cardiovascular: S1-S2 and Regular Rhythm
Respiratory: Clear and Non-Labored Respirations
GI: Soft, Non Distended and Non Tender
Neurology: Awake, Alert, Oriented and No Motor Deficits
Skin: Warm, Dry and Good Color
Labs/Micro/Reports
Lab Data
03/17/25 05:25
03/17/25 05:25
--- NOTE | 2025-03-17 10:12 | CM ---
Patient seen at bedside in IMU patient for IR, today. Patient possible for discharge pending medical treatment plan. At [facility] patient, with supports via wellness nursing at community. CM will continue to follow for discharge planning needs.
Plan; home with no needs; family supports.
--- NOTE | 2025-03-17 10:18 | W.PN.ONC2 ---
Today's Communication / Plan
-
follow for path
OP follow up will be arranged upon discharge
and son at bedside provided updates and questions answered
Impression
Impression
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
Large pericardial effusion
Plan
Plan
Pt is considering intervention with Dr. Bessie Monte [facility] for stent and tumor debulking -appreciate pulmonary input
CT surgery planning for pericardial drainage
We will follow for pathology
Subjective/Objective
Subjective
no new complaints
no hypoxia
Vital Signs:
Vital Signs
Temp Pulse Resp BP Pulse Ox
97.5 F 60 19 109/57 100
03/17/25 07:20 03/17/25 02:15 03/16/25 13:00 03/17/25 02:00 03/17/25 03:14
Lab Results:
Laboratory Data
WBC 5.9 10^3/uL (4.8-10.8) 03/17/25 05:25
Hgb 12.2 g/dL (12.0-16.0) 03/17/25 05:25
Plt Count 162 10^3/uL (130-400) 03/17/25 05:25
PT 14.1 Sec (11.4-14.6) 03/16/25 07:53
INR 1.04 03/16/25 07:53
eGFR > 60.00 03/17/25 05:25
Physical Exam
HEENT: No Jaundice
Cardiology: Normal Sinus Rhythm
Pulmonary: Other (diminshed LLL)
GI: Soft
Extremities: Pulses Present and Edema
Neuro: Non Focal
Orders
Orders
Orders From Last 24 Hours
03/16/25 12:40
Add On- LAB Routine
03/17/25 10:18
CT Abd/pel W Iv And Oral Contr Routine
--- NOTE | 2025-03-17 10:46 | PTCARENOTE ---
Patient AAOx3, no complaints. NPO. Awaiting IR procedure. VSS. Continuing to closely monitor.
--- NOTE | 2025-03-17 11:13 | W.PN.HOSP.TC ---
Addendum entered and electronically signed by Charla Hoskins MD 03/17/25 17:05:
I saw and evaluated the patient independently. I reviewed the resident�s note and agree with findings and plan as documented by Dr. Alves.
GENERAL: well developed, well nourished, female in no apparent distress
HEENT: NC/AT
HEART: regular rate and rhythm, +S1, +S2--distant heart hounds
LUNGS : clear to auscultation bilaterally anteriorly--limited
ABDOM: soft, nontender, nondistended, + bowel sounds
EXT: no cyanosis, clubbing-- 2+ LE edema pitting bilaterally--tender to touch
NEUROLOGIC: grossly intact
Pericardial effusion as seen on CT 03/15/2025 and outpatient echo--etiologies include possible malignancy (does have mass discussed below), infection, heart failure, rheumatologic, etc--apprec CT surgery--await bedside echo result--apprec IR--for
drainage 03/17/25 and cultures/cytology etc--would recommend the following: if path + then needs ONC for treatment options; if path - then would recommend transfer to [place] for upper lobe resection--'mass' could be worsening fibrotic
tissue/calcifications from previous recurrent pneumonias--bronch and/or direct biopsy would be difficult given discussion with all appropriate parties--effusion drained but drain left in--getting CT scans Chest/AB/Pelvis--transfer to IVU
History of multiple pneumonias with History of lung/mediastinal mass--pt does not have known lung cancer--in fact, multiple samples done as outpt have been neg--apprec pulm/IR--would attempt to obtain previous records from [facility]- Patient will have to
have PET outpatient in coordination with her outpt interventional sleep scientist--we do not do as inpatient, so will need to be rescheduled--further direction pending path as discussed above
GERD- Continue pantoprazole 40 mg p.o. daily
Parkinson's disease s/p deep brain stimulator--continue to monitor
DVT proph--SCDs
CODE STATUS-- Full code
hopeful d/c in AM after ECHO and CT scans all finished and drain removed
Original Note:
Today's Communication/Plan
-
Planned for IR catheter based drainage of pericardial effusion at noon today
Resume diet after, appreciate IR recs
Assessment / Plan
Assessment / Plan
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
2021, who presented to emergency department on 03/15/2025 per recommendation from cardiac surgery after an outpatient echo at [facility] showed a large pericardial effusion. Other than increasing bilateral lower extremity 1+ edema, she is
asymptomatic. CT chest 03/15/2025 findings below. Cardiac surgery, IR, pulmonology, and oncology are following for management.
Chest CT 03/15/2025:
No CTA evidence for an acute pulmonary thromboembolism.
Soft tissue mass centered at the left hilum in keeping with the reported history of lung cancer. This shows direct invasion into the left lateral mediastinum, encasement of the left main pulmonary artery, and occlusion of the left upper lobe
bronchi. Recommend direct correlation with previous outside imaging of the chest, which is not currently available.
Complete atelectasis of the left upper lobe.
Mediastinal lymphadenopathy, which is presumably metastatic.
Large pericardial effusion.
Cardiac Echo 03/16/2025:
1. Small left ventricle with mild LVH, septal straightening, ejection fraction 65 to 70%.
2. Mild to moderate mitral regurgitation with normal left atrium.
3. Aortic sclerosis without significant stenosis.
4. The right heart is normal without obvious right ventricular free wall diastolic collapse.
5. Moderate pericardial effusion without clear-cut evidence of hemodynamic compromise.
6. There are no prior studies available for comparison.
#Pericardial effusion as seen on CT 03/15/2025 and outpatient echo, s/p IR drain 03/17/2025
#Shortness of breath on exertion, transient
#History of multiple pneumonias
#History of mediastinal mass
Etiology for her pericardial effusion is most likely related to her known cancer, however could also be infectious, rheumatic, or cardiac in nature. Given that she is stable and asymptomatic currently, we will continue to monitor on telemetry until
her effusion can be drained by IR. We will also seek to obtain outside records and hold diuresis until s/p drainage. She is scheduled for IR drainage at noon today, 03/17. Per CTS, she will need repeat echo after, and then drain removal prior to
discharge.
- Cardiothoracic surgery, oncology, pulmonology, and IR following: Appreciate recs
--IR planning for catheter-based drainage this afternoon, 03/17/2025
---NPO until s/p IR drainage; ADAT after
---She is not on AC, nothing to hold/resume
---PER CTS, repeat Echo tomorrow 03/18 s/p IR drain; if unremarkable, remove IR drain with IR 03/18
- Echo as above; EKG showing low voltage QRS (expected iso pericardial effusion)
- Obtain outside records
- Note: We will not diurese, given high risk for post diuresis decreased cardiac output ISO known large pericardial effusion.
- Patient will have to have PET outpatient in coordination with her oncologist
#GERD
- Continue pantoprazole 40 mg p.o. daily
#Parkinson's disease s/p deep brain stimulator
- Nothing to do, continue to monitor
DVT prophylaxis: SCDs
CODE STATUS: Full code
Anticipated Discharge: Within 24 hours (Pending repeat echo & IR drain removal )
Subjective/Interval History
-
Date of Service: March 17, 2025
-NAEON. This morning, she's eagerly anticipating IR procedure at noon. NPO in preparation for that. She denies SOB, chest pain, lightheadedness, or any other symptoms. Son is bedside.
Objective Data
-
Labs:
Laboratory Results
03/17/25
05:25
WBC 5.9
Hgb 12.2
Hct 36.4 L
Plt Count 162
Sodium 140
Potassium 4.5
Chloride 110 H
Carbon Dioxide 25
BUN 21 H
Creatinine 0.6
Glucose 115 H
Calcium 9.2
Vital Signs:
Vital Signs
Temp Pulse Resp BP Pulse Ox
97.5 F 77 19 135/59 97
03/17/25 07:20 03/17/25 11:00 03/16/25 13:00 03/17/25 10:00 03/17/25 10:22
I&O
03/16/25 03/17/25 03/18/25
06:59 06:59 06:59
Intake Total 1620 / 1620
Balance 1620 / 1620
Review of Systems
-
History Source: Patient
All other systems: Reviewed and negative
Physical Exam
-
General: Well Developed, Well Nourished, No Apparent Distress, Comfortable and Conversant
HEENT: Normocephalic, Atraumatic and Moist Mucous Membranes
Respiratory: Clear to Auscultation and Non Labored Respirations
Cardiac: Regular Rhythm and S1/S2
GI: Soft, Nontender and Nondistended
Musculoskeletal: No Clubbing, No Cyanosis and No Edema
Skin: Warm and Dry
Neuro: AO x 3
Psych: Calm and Intact Judgement/Insight
--- NOTE | 2025-03-17 13:26 | W.PN.UPDATE ---
Update Note
Progress Note Update
6 Fr catheter was placed into pericardial effusion, yielding 130 cc of blood tinged fluid. Sent for C+S, cytology.
[2025-03-17] MEDS: OMNIPAQUE 50 ML PO (14:27)
--- NOTE | 2025-03-17 14:35 | PTCARENOTE ---
Patient returned from IR with left chest drain. 160ml blood tinged fluid emptied upon arrival to unit. Patient c/o back pain from position required to lay on IR table. NSR with occasional PVCs. RA 99%. BP stable. Patient drowsy but arousable and
oriented. Patient beginning oral contrast now. Will closely monitor.
[2025-03-17 14:37] LABS: Body Fluid Granulocytes 0 %
[2025-03-17] MEDS: TYLENOL 650 MG PO ×2 (15:12→20:18)
--- NOTE | 2025-03-17 22:49 | PTCARENOTE ---
Received pt from IMU RN via wheelchair into room 2253 @ approx 1930. pt ambulated into room. AAOx3, VSS. Monitor placed on pt, SR, HR 80-90's. pt oriented to room and call [facility]. PRN Tylenol administered per pt request for pain 310 at pericardial
drain site, reports that it is worse with deep breathing or movement. pt reports relief with Tylenol. Encouraged pt to call RN with any questions/concerns. Call [facility] within reach.
[2025-03-18] MEDS: ZOFRAN 4 MG IV (02:29)
[2025-03-18] MEDS: TYLENOL 1000 MG PO (02:29)
[2025-03-18 02:39] VITALS: BP 120/59
[2025-03-18 02:46] VITALS: BMI 36.4
[2025-03-18 03:06] LABS: Hematocrit 39.4 % (37.0-47.0); Hemoglobin 13.5 g/dL (12.0-16.0); Mean Corp Hgb Conc. 34.3 g/dL (33.0-37.0); Mean Corpuscular Volume 92.3 fL (81.0-99.0); Nucleated Red Blood Cells % 0 %; Platelet Count 165 10^3/uL (130-400); Red Cell Dist. Width 13.3 % (11.5-14.5)
[2025-03-18 03:29] LABS: ALT (SGPT) 17 U/L (0-35); AST (SGOT) 18 U/L (14-36); Albumin 3.9 g/dl (3.5-5.0); Alkaline Phosphatase 63 U/L (38-126); Blood Urea Nitrogen 19 mg/dl (7-17); Calcium 9.1 mg/dl (8.4-10.2); Carbon Dioxide 23 mmol/L (22-30); Chloride 111 mmol/L (98-107); Estimated Creatinine Clearance 81 ml/min; Glucose 164 mg/dl (70-99); Potassium 4.2 mmol/L (3.5-5.1); Sodium 140 mmol/L (135-145); Total Protein 6.3 g/dl (6.3-8.2); eGFR > 60.00
[2025-03-18] MEDS: DILAUDID 0.25 MG IV (03:54)
--- NOTE | 2025-03-18 04:52 | PTCARENOTE ---
Pt reporting pain at pericardial drain site as 8/10, especially while taking a deep breath or with movement, as well as nausea. Lauren Tineo, FEED BLENDER made aware and ordered Extra strength Tylenol and Zofran. Administered with no relief. FEED BLENDER ordered
one time dose of IV Dilaudid. VSS. pt reports having relief.
--- NOTE | 2025-03-18 08:09 | W.PN.HOSP.TC ---
Today's Communication/Plan
-
hopeful d/c home after drain pulled
Assessment / Plan
Assessment / Plan
pt is a 79 year old female
Pericardial effusion as seen on CT 03/15/2025 and outpatient echo--etiologies include possible malignancy (does have mass discussed below), infection, heart failure, rheumatologic, etc--apprec CT surgery- 1st ECHO 03/16 with EF 65-70% with moderate
pericardial effusion--2nd ECHO 03/17 with EF 60-65% and no evidence of pericardial effusion-apprec IR--s/pdrainage 03/17/25 for 130mls and cultures/cytology pending--would recommend the following: if path + then needs ONC for treatment options; if
path - then would recommend follow up at [place] for upper lobe resection--'mass' could be worsening fibrotic tissue/calcifications from previous recurrent pneumonias--bronch and/or direct biopsy would be difficult given discussion with all appropriate
parties-- CT scans Chest/AB/Pelvis show spot on pancreatic head, will defer to ONC next steps (MRI, PET, etc)--plan would be d/c home if cleared by all parties (IR, CT, etc)--drain would need to be pulled first--unclear if another echo needs to be
done today
History of multiple pneumonias with History of lung/mediastinal mass--pt does not have known lung cancer--in fact, multiple samples done as outpt have been neg--apprec pulm/IR--would attempt to obtain previous records from [facility]- Patient will have to
have PET outpatient in coordination with her outpt interventional automobile club information clerk--we do not do as inpatient, so will need to be rescheduled--further direction pending path as discussed above
GERD- Continue pantoprazole 40 mg p.o. daily
Parkinson's disease s/p deep brain stimulator--continue to monitor
DVT proph--SCDs
CODE STATUS-- Full code
hopeful d/c today
Anticipated Discharge: Today
Subjective/Interval History
-
Date of Service: March 18, 2025
Patient states she had a bad night--pain from pericardial drain--nursing reports no drainage overnight
Objective Data
-
Labs:
Laboratory Results
03/18/25
02:45
WBC 11.3 H
Hgb 13.5
Hct 39.4
Plt Count 165
Sodium 140
Potassium 4.2
Chloride 111 H
Carbon Dioxide 23
BUN 19 H
Creatinine 0.6
Glucose 164 H
Calcium 9.1
Total Bilirubin 0.8
AST 18
ALT 17
Alkaline Phosphatase 63
Vital Signs:
max temp for 24 hours
03/17/25
12:01
Temp 98.3 F
Vital Signs
Temp Pulse Resp BP Pulse Ox
97.8 F 74 20 120/59 94
03/18/25 02:39 03/18/25 07:15 03/18/25 02:39 03/18/25 02:39 03/18/25 02:39
I&O
03/17/25 03/18/25 03/19/25
06:59 06:59 06:59
Intake Total 1620 / 1620
Output Total 260 / 260
Balance 1620 / 1620 -260 / -260
Review of Systems
-
All other systems: Reviewed and negative
Respiratory: Reports Trouble Breathing (said had trouble catching her breath)
Cardiac: Reports Chest Pain (likely from drain)
Physical Exam
-
General: Well Developed, Well Nourished and No Apparent Distress
HEENT: Normocephalic and Atraumatic; Negative Oxygen
Respiratory: Clear to Auscultation; Negative Wheezes or Rhonchi
Cardiac: Regular Rhythm, S1/S2 and Other (pericardial drain with scant fluid noted); Negative Murmur
GI: Soft, Nontender, Nondistended and Normal Bowel Sounds
Musculoskeletal: No Clubbing, No Cyanosis and No Edema
Skin: Warm
Neuro: Awake
Psych: Calm
[2025-03-18 08:25] VITALS: BP 124/57
[2025-03-18] MEDS: PROTONIX 40 MG PO (08:35)
--- NOTE | 2025-03-18 09:40 | W.PN.UPDATE ---
Update Note
Progress Note Update
Drain to be pulled today. Recommend outpatient echo in 1 week.
[2025-03-18] MEDS: TYLENOL 650 MG PO (10:49)
[2025-03-18 12:16] VITALS: BP 121/53
[2025-03-18] MEDS: COLCHICINE 0.6 MG PO (14:21)
[2025-03-18 15:41] VITALS: BP 126/53
--- NOTE | 2025-03-18 17:12 | PTCARENOTE ---
Interventional radiologist came in and removed Pt's pericardial drain, Pt aislinn well. L anterior chest/axillary dsg, beneath L breast, D+I.
--- NOTE | 2025-03-19 07:30 | W.DCSUMMARY ---
Discharge Summary
Discharge Data
Date of Admission: 03/15/25
Date of Discharge: 03/18/25
-
Pending Results: Yes
Additional Pending Results:
Pathology from pericardial effusion drainage
Hospital Course
Primary care physician : Bessie Monte
Principal Discharge diagnosis : Pericardial effusion
Chronic Discharge diagnosis : History of multiple pneumonias with lung/mediastinal mass, gastroesophageal reflux disease, Parkinson's disease with status post deep brain stimulator
Hospital Course : Patient was a 79-year-old female with a history of Parkinson's disease and reflux who presented with lower extremity edema. She was undergoing workup as an outpatient which included an echocardiogram. It was found that she had a
large pericardial effusion and was instructed to come to the emergency department. She stated that she occasionally has to stop and catch her breath but notes that it is rare. CT scan confirms pericardial effusion. Patient was admitted.
Problem #1: Pericardial effusion. Patient was admitted and seen in consultation by CT surgery and interventional radiology. Etiologies included possible malignancy, infection, heart failure, rheumatologic. First echocardiogram done 03/16 showed an
ejection fraction of 65 to 70% with a moderate pericardial effusion. Second echocardiogram done 03/17 showed an EF of 60 to 65% and no evidence of the effusion after drainage was performed. 130 mL of fluid was removed. The drain was left in place.
No drainage happened from [id number]. Interventional radiology did discontinue the drain and the patient was able to be discharged. She will need an outpatient echocardiogram in 1 week. Fluid studies from the pericardial effusion were noted. There
were no signs of infection. Pathology is pending.
Problem #2: History of multiple pneumonias with lung/mediastinal mass. Patient has had a known lung mass for approximately 10 years. She does not have known lung cancer in fact multiple samples done as an outpatient have been negative. Pulmonary
was consulted. CAT scan of the chest done here shows no evidence for pulmonary embolism. Soft tissue mass centered at the left hilum which show direct invasion of the left lateral mediastinum, encasement of the left main pulmonary artery, and
occlusion of the left upper lobe bronchi were noted. As a result, there was complete atelectasis of the left upper lobe. There is mediastinal lymphadenopathy also present. Plan as outlined at discharge from our standpoint includes: If path is
negative then would recommend follow-up at [place] for upper lobe resection or further evaluation of this mass. If the path is positive then she will need to be referred to oncology for treatment options. Also as part of the workup, patient had CT
scans of the abdomen and pelvis there was a 1.6 x 0.8 cm low-attenuation focus of the head of the pancreas. This should be discussed with her primary and a nonemergent follow-up MRI is recommended.
Problem #3: All other medical issues. These include gastroesophageal reflux disease, Parkinson's disease status post deep brain stimulator. These medical issues were stable during her hospitalization. Medications were continued as able.
Patient is stable for discharge home at this time. If there are any questions regarding this dictation or her hospital stay, please do not hesitate to call. Our office number is [phone].
Time for discharge 33 minutes.
Procedure findings:
PERICARDIOCENTESIS IMPRESSION: Successful CT guided drainage catheter placement into a pericardial effusion, yielding 130 mL of blood tinged fluid.
Important imaging findings :
CT CHEST IMPRESSION:
No CTA evidence for an acute pulmonary thromboembolism.
Soft tissue mass centered at the left hilum in keeping with the reported history of lung cancer. This shows direct invasion into the left lateral mediastinum, encasement of the left main pulmonary artery, and occlusion of the left upper lobe
bronchi. Recommend direct correlation with previous outside imaging of the chest, which is not currently available.
Complete atelectasis of the left upper lobe.
Mediastinal lymphadenopathy, which is presumably metastatic.
Large pericardial effusion.
CT ABDOMEN/PELVIS IMPRESSION:
No residual pericardial effusion identified. Trace left pleural effusion has developed.
Small sliding hiatal hernia.
Small hepatic cysts.
Cholelithiasis.
1.6 x 0.8 cm low-attenuation focus in the head of the pancreas. Consider nonemergent follow-up MRI characterization.
Tiny nonobstructing renal calculi. 1.4 cm right renal cyst.
Mild diverticulosis. No evidence of acute diverticulitis. Minor colonic fecal burden.
Trace ascites. Right uterine body fibroid measuring 4.4 cm. Left ovarian simple nonenhancing cyst measuring 2.2 cm.
Discharge Plan
-
Patient Disposition: Home (Routine Discharge)
Discharge Diagnosis/Procedures: Pericardial effusion s/p IR drainage 03/17/2025, history of multiple pneumonias with lung/mediastinal mass, gastroesophageal reflux disease, Parkinson's disease status post deep brain stimulator
Condition: Good
Diet: Regular
Activity: No restrictions
Driving Restrictions: As prior to admission
Bathing Restrictions: None
Blood Work: CBC with differential and CMP in 1 week
Others Tests: Repeat echo in 1 week
Activity Restrictions/Additional Instructions:
Please discussed the results of your CAT scans with either oncology or your primary care physician--they were obtained as part of the workup for the effusion
echo in 1 week
Referrals:
Bessie Monte DO [Family Provider, Internal Medicine] - in one week
Joseph Dangelo MD [Active, Cardiac Surgery] - in one to two weeks
Referral Note: Follow-up with cardiac surgery, repeat echo in 1 week
Prescriptions:
New
acetaminophen 325 mg Tablet
650 mg PO Q4HPRN PRN (Reason: mild pain/ fever>100.5F) Qty: 0 0RF
Continued
furosemide 40 mg tablet
40 mg PO DAILYPRN PRN (Reason: Edema)
pantoprazole 40 mg tablet,delayed release (DR/EC)
40 mg PO DAILY
Discharge Orders:
Discharge Patient (As Directed); Ordered 03/18/25
Ordered By: Charla Hoskins
Discharge Date and Time
Discharge Date/Time: 03/18/25 17:55
Print Language: CITIZEN OF [place]
== END 2025-03-18 17:55 | disposition home or self-care (01) | DRG 314 ==
LOC: IVU 23:10
PROVIDERS: Emergency Medicine; Nurse Practitioner Family; Physician Assistant Medical; Radiology Vascular & Interventional Radiology; ADMITTING PHYSICIAN Hospitalist; ATTENDING PHYSICIAN Internal Medicine; CONSULT PHYSICIAN Internal Medicine; CONSULT PHYSICIAN Internal Medicine Hematology & Oncology; CONSULT PHYSICIAN Thoracic Surgery (Cardiothoracic Vascular Surgery); EMERGENCY PHYSICIAN Emergency Medicine; FAMILY PHYSICIAN Internal Medicine Critical Care Medicine
PROC: 0W9D30Z Drainage of Pericardial Cavity with Drainage Device, Percutaneous Approach (ICD-10-PCS; 2025-03-17)
DX: I31.39 Other pericardial effusion (noninflammatory) (principal); J98.59 Other diseases of mediastinum, not elsewhere classified; J98.11 Atelectasis; G20.A1 Parkinson's disease without dyskinesia, without mention of fluctuations; K21.9 Gastro-esophageal reflux disease without esophagitis; R59.0 Localized enlarged lymph nodes; R91.8 Other nonspecific abnormal finding of lung field; I70.0 Atherosclerosis of aorta; J44.89 Other specified chronic obstructive pulmonary disease; I34.0 Nonrheumatic mitral (valve) insufficiency; E66.9 Obesity, unspecified; K44.9 Diaphragmatic hernia without obstruction or gangrene; K76.89 Other specified diseases of liver; K80.20 Calculus of gallbladder without cholecystitis without obstruction; N28.1 Cyst of kidney, acquired; K57.30 Diverticulosis of large intestine without perforation or abscess without bleeding; D25.9 Leiomyoma of uterus, unspecified; Z82.49 Family history of ischemic heart disease and other diseases of the circulatory system; Z80.3 Family history of malignant neoplasm of breast; Z87.01 Personal history of pneumonia (recurrent); Z96.82 Presence of neurostimulator; Z68.36 Body mass index [BMI] 36.0-36.9, adult; Z85.118 Personal history of other malignant neoplasm of bronchus and lung
CPT/HCPCS: 49406; 71275; 74177; 80048; 80053; 82150; 82945; 83615; 83735; 83880; 83986; 84157; 84478; 84484; 84550; 85025; 85027; 85610; 87015; 87070; 87116; 87205; 88112; 88305; 88341; 88342; 89051; 93005; 93306; 93308; 99152; 99153; 99285; Q9967

== ENCOUNTER → 2025-04-11 06:30 | Outpatient (REF) | payer MEDICARE, SELFPAY ==
[2025-04-11] VITALS (13 sets, daily range): BP systolic 73–138; BP diastolic 29–73
[2025-04-11 06:57] LABS: Hematocrit 36.1 % (37.0-47.0); Hemoglobin 12.1 g/dL (12.0-16.0); Mean Corp Hgb Conc. 33.5 g/dL (33.0-37.0); Mean Corpuscular Volume 90.7 fL (81.0-99.0); Nucleated Red Blood Cells % 0 %; Platelet Count 242 10^3/uL (130-400); Red Cell Dist. Width 13.2 % (11.5-14.5)
[2025-04-11 07:04] LABS: INR 1.02; PT 13.7 Sec (11.4-14.6)
[2025-04-11 07:29] LABS: ALT (SGPT) 37 U/L (0-35); AST (SGOT) 24 U/L (14-36); Albumin 3.6 g/dl (3.5-5.0); Alkaline Phosphatase 81 U/L (38-126); Blood Urea Nitrogen 19 mg/dl (7-17); Calcium 9.5 mg/dl (8.4-10.2); Carbon Dioxide 29 mmol/L (22-30); Chloride 107 mmol/L (98-107); Glucose 114 mg/dl (70-99); Potassium 4.6 mmol/L (3.5-5.1); Sodium 140 mmol/L (135-145); Total Protein 6.4 g/dl (6.3-8.2); eGFR > 60.00
== END ==
LOC: RADI 06:30
PROVIDERS: ATTENDING PHYSICIAN Internal Medicine Critical Care Medicine; OTHER PHYSICIAN Physician Assistant; REFERRING PHYSICIAN Internal Medicine Hematology & Oncology
DX: D3A.8 Other benign neuroendocrine tumors (principal); R91.1 Solitary pulmonary nodule; R16.0 Hepatomegaly, not elsewhere classified
CPT/HCPCS: 36415; 47000; 76942; 80053; 85025; 85610; 88307; 88333; 88341; 88342; 99152; 99153

== ENCOUNTER → 2025-04-20 14:45 | Outpatient (REF) | payer MEDICARE, SELFPAY | LOC: RCS 14:45 | PROVIDERS: ATTENDING PHYSICIAN Internal Medicine Hematology & Oncology; FAMILY PHYSICIAN Internal Medicine Critical Care Medicine | DX: C34.12 Malignant neoplasm of upper lobe, left bronchus or lung (principal) | CPT/HCPCS: 93306 ==

== ENCOUNTER → 2025-05-06 08:02 | Outpatient (REF) | payer MEDICARE, SELFPAY | LOC: RCS 08:02 | PROVIDERS: ATTENDING PHYSICIAN Internal Medicine Hematology & Oncology; FAMILY PHYSICIAN Internal Medicine Critical Care Medicine | DX: C34.12 Malignant neoplasm of upper lobe, left bronchus or lung (principal) | CPT/HCPCS: 93306 ==

== ENCOUNTER → 2025-05-08 15:18 | Outpatient (REF) | payer MEDICARE, SELFPAY | LOC: RAD 15:18 | PROVIDERS: ATTENDING PHYSICIAN Internal Medicine Critical Care Medicine | DX: E07.9 Disorder of thyroid, unspecified (principal) | CPT/HCPCS: 76536 ==

== ENCOUNTER → 2025-05-16 14:48 | Outpatient (REF) | payer MEDICARE, SELFPAY | LOC: RCS 14:48 | PROVIDERS: ATTENDING PHYSICIAN Internal Medicine Hematology & Oncology; FAMILY PHYSICIAN Internal Medicine Critical Care Medicine | DX: C34.12 Malignant neoplasm of upper lobe, left bronchus or lung (principal); I34.0 Nonrheumatic mitral (valve) insufficiency; I31.39 Other pericardial effusion (noninflammatory) | CPT/HCPCS: 93308; 93321; 93325 ==

== ENCOUNTER → 2025-06-03 11:07 | Outpatient (REF) | payer MEDICARE, SELFPAY | LOC: RCS 11:07 | PROVIDERS: ATTENDING PHYSICIAN Internal Medicine Hematology & Oncology; FAMILY PHYSICIAN Internal Medicine Critical Care Medicine | DX: C7A.098 Malignant carcinoid tumors of other sites (principal) | CPT/HCPCS: 93306 ==

== ENCOUNTER → 2025-06-13 15:05 | Outpatient (REF) | payer MEDICARE, SELFPAY | LOC: RCS 15:05 | PROVIDERS: ATTENDING PHYSICIAN Internal Medicine Hematology & Oncology; FAMILY PHYSICIAN Internal Medicine Critical Care Medicine | DX: C7A.098 Malignant carcinoid tumors of other sites (principal); C78.7 Secondary malignant neoplasm of liver and intrahepatic bile duct | CPT/HCPCS: 93308 ==

== ENCOUNTER → 2025-06-27 10:19 | Outpatient (REF) | payer MEDICARE, SELFPAY | LOC: RCS 10:19 | PROVIDERS: ATTENDING PHYSICIAN Internal Medicine Hematology & Oncology; FAMILY PHYSICIAN Internal Medicine Critical Care Medicine | DX: I31.39 Other pericardial effusion (noninflammatory) (principal); C7A.098 Malignant carcinoid tumors of other sites; C78.7 Secondary malignant neoplasm of liver and intrahepatic bile duct | CPT/HCPCS: 93308; 93321; 93325 ==

== ENCOUNTER → 2025-07-11 07:18 | Outpatient (REF) | payer MEDICARE, SELFPAY | LOC: RCS 07:18 | PROVIDERS: ATTENDING PHYSICIAN Internal Medicine Hematology & Oncology; FAMILY PHYSICIAN Internal Medicine Critical Care Medicine | DX: C7A.098 Malignant carcinoid tumors of other sites (principal); C78.7 Secondary malignant neoplasm of liver and intrahepatic bile duct | CPT/HCPCS: 93306 ==

== ENCOUNTER 2025-07-13 15:22 | Inpatient (IN) | payer MEDICARE, SELFPAY ==
[2025-07-13] VITALS (7 sets, daily range): BP systolic 112–164; BP diastolic 59–109; BMI 37.3; BMI 36.7
[2025-07-13 13:39] LABS: Hematocrit 38.7 % (37.0-47.0); Hemoglobin 13.1 g/dL (12.0-16.0); Mean Corp Hgb Conc. 33.9 g/dL (33.0-37.0); Mean Corpuscular Volume 91.5 fL (81.0-99.0); Nucleated Red Blood Cells % 0 %; Platelet Count 146 10^3/uL (130-400); Red Cell Dist. Width 13.3 % (11.5-14.5)
[2025-07-13 14:00] LABS: Blood Urea Nitrogen 17 mg/dl (7-17); Calcium 9.3 mg/dl (8.4-10.2); Carbon Dioxide 28 mmol/L (22-30); Chloride 106 mmol/L (98-107); Estimated Creatinine Clearance 83 ml/min; Glucose 98 mg/dl (70-99); Sodium 138 mmol/L (135-145); eGFR > 60.00
[2025-07-13 14:02] LABS: Troponin I < 0.012 ng/ml
--- NOTE | 2025-07-13 14:13 | HPS.HSE ---
Addendum entered and electronically signed by Onesimo Blevins MD 07/13/25 16:52:
Correction- patient on hormonal therapy.
Addendum entered and electronically signed by Onesimo Blevins MD 07/13/25 16:49:
This is an addendum to H&P written by Temitope Gallegos on 07/13/2025. �Patient seen and examined independently with MECHANICAL OPERATOR.
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
echocardiogram and was referred to the hospital by CT surgery. �Shortness of breath and lightheadedness
Vital signs unremarkable.
Labs unremarkable. �Echo from 07/11 shows EF of 60 to 65%, large circumferential pericardial effusion without evidence of tamponade physiology.
Patient with recurrent enlarged pericardial effusion in the setting of lung cancer. �CT surgery planning on pericardial window tomorrow. �N.p.o. past midnight.
Original Note:
Family Physician
-
Family Physician:
Chief Complaint
-
abnormal out patient echo
History of Present Illness
Patient is a 79-year-old female with past medical history significant for Parkinson's disease, GERD and lung cancer with malignant pericardial effusion who presented to [facility] for evaluation for abnormal out patient echo. Patient with recent
hospitalization in 03/2025 for pericardial effusion following and out patient abnormal echo. Following hospitalization patient was diagnosed with lung cancer and has been receiving biweekly echocardiograms to monitor pericardial effusion. Patient
reports last echo was completed on Thursday07/10/2025, oncology referred her to CT surgery who then requested she come to hospital for admission. Patient does endorse exertional dyspnea and lightheadedness. Denies any fevers, chest pain,
palpitations, nausea, vomiting, constipation, diarrhea or urinary symptoms.
Medical History
Past Medical History
Past Medical History: Reports Other
Additional Past Medical History:
Parkinson's disease
GERD
lung cancer with suspected malignant pericardial effusion
Past Surgical History: Reports Other
Additional Past Surgical History:
deep brain stimulator
ovarian cyst removal
Social History
Tobacco: Non-smoker
Alcohol: None
Personal:
Living: With Family
Employment: Retired
Family History
Family History: Not pertinent
Allergies / Home Medications
Allergies reflects when Allergies were last updated in [facility].
Home Medications with original date entered in [facility]
Allergy/Medication List:
Allergies
Allergy/AdvReac Type Severity Reaction Status Date / Time
No Known Allergies Allergy Verified 07/13/25 12:31
Home Medications
calcium carbonate (Tums) 200 mg PO DAILY 07/13/25
cholecalciferol (vitamin D3) 25 mcg (1,000 unit) tablet (Vitamin D3) 25 mcg PO DAILY 07/13/25
clotrimazole 1 % topical cream 1 applic topical BID feet 07/13/25
cyclosporine 0.05 % eye drops 1 drp BOTH EYES Q12H 07/13/25
lotilaner 0.25 % eye drops (Xdemvy) 1 drp BOTH EYES Q12H 07/13/25
oxybutynin chloride 5 mg tablet 5 mg PO DAILY 07/13/25
pantoprazole 40 mg tablet,delayed release 40 mg PO DAILY 07/13/25
Review of Systems
-
History Source: Patient
Constitutional: Reports Chills; Denies Fever
EENT: Denies Sore Throat
Respiratory: Reports Trouble Breathing (exertional dyspnea ); Denies Cough or Hemoptysis
Cardiac: Denies Chest Pain, Diaphoresis, Palpitations or Syncope
Abdomen/GI: Denies Abdominal Pain, Nausea, Vomiting or Diarrhea
: Denies Dysuria, Frequency or Urgency
Musculoskeletal: Denies Joint Pain
Skin: Denies Rash
Neurological: Reports Dizzy; Denies Headache, Weakness or Numbness
Physical Exam
Vital Signs
Vital Signs
Temp Pulse Resp BP Pulse Ox
98.0 F 52 15 164/109 97
07/13/25 12:26 07/13/25 14:08 07/13/25 13:30 07/13/25 13:00 07/13/25 13:30
Physical Exam
General: Well Developed, Well Nourished, No Apparent Distress, Comfortable, Conversant and Obese
HEENT: NormoCephalic, Moist mucous membranes, PERRLA, Nose Appears Normal and Ears Appear Normal
Respiratory: Wheezes and Non Labored Respirations
Cardiac: Regular Rhythm; No Murmur, Rub, Gallop or Peripheral Edema
GI: Soft, Non Tender, Non Distended and Normal Bowel Sounds
Musculoskeletal: No Clubbing and No Cyanosis
Skin: Warm and IV/Catheter Site
Neuro: Awake and AO x 3
Psych: Calm and Intact Judgment/Insight
Laboratory Results
-
07/13/25 13:30
07/13/25 13:30
Laboratory Results
Total Bilirubin Cancelled 07/13/25 13:30
AST Cancelled 07/13/25 13:30
ALT Cancelled 07/13/25 13:30
Alkaline Phosphatase Cancelled 07/13/25 13:30
Troponin I < 0.012 ng/ml 07/13/25 13:30
Data Reviewed
-
Medical Tests (Nuc Med, Echo, EKG etc): Report Reviewed by me (EKG: SINUS BRADYCARDIA WITH PREMATURE ATRIAL COMPLEXES LOW VOLTAGE QRS LATERAL INFARCT , AGE UNDETERMINED)
Lab Data: Labs Reviewed by me
Impression/Plan
-
IMPRESSION/PLAN:
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
patient with abnormal outpatient ECHO on Thursday07/11/2025, recommended by CT surgery to come to ED to be admitted for pericardial window
labs unremarkable
EKG: SINUS BRADYCARDIA WITH PREMATURE ATRIAL COMPLEXES
LOW VOLTAGE QRS
LATERAL INFARCT , AGE UNDETERMINED
- Admit to IVU
- Consult CT surgery
- NPO at midnight for pericardial window tomorrow
#GERD
- continue Protonix
#Parkinson's disease
s/p brain stimulator
- stable
Code status: full code
DVT prophylaxis: SCDs
--- NOTE | 2025-07-13 14:15 | W.PN.UPDATE ---
Update Note
Progress Note Update
CARDIAC SURGERY ATTENDING:
FULL CONSULT TO FOLLOW
Mrs. 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
to liver/bone (well-differentiated neuroendocrine tumor, WHO grade 2), multiple pneumonias with mediastinal mass collapsing her left upper lobe, gastroesophageal reflux disease, pancreatic divisum with pancreatic cyst in the pancreatic head, and
prior pericardial effusion in March 2025.
Her index pericardial effusion was drained via catheter drainage. This was a bloody effusion at the time. She remained stable and was discharged from [facility] 3 days later. She obtained an outpatient PET scan. And subsequently
underwent liver biopsy. A follow-up echocardiogram was obtained on 07/11/2025 that demonstrated recurrence of a large, circumferential pericardial effusion. Her LVEF is 60 to 65%. She has mild mitral valve regurgitation. There is no evidence of
current tamponade physiology.
Given the recurrence of her pericardial effusion, I would recommend that the patient undergo surgical pericardial window. In terms of approach, we discussed both a robotic assisted thorascopic approach versus a traditional subxiphoid approach. We
will plan for potential intervention tomorrow, 07/14/2025. I reviewed the surgical plan with the patient and her family. We discussed her pathology, the proposed operative interventions, the associated perioperative risks (including lung/cardiac
injury, phrenic nerve injury, bleeding, and infection), discussed the expected in-hospital postprocedural course, and reviewed the expected outpatient recovery. All questions were answered to the best of my abilities. The patient is agreeable to
proceed.
Thank you for the opportunity participate in the care of this kind patient.
Joseph Dangelo MD
[phone]
--- NOTE | 2025-07-13 15:04 | ED.GENMED ---
History of Present Illness
<Melba Medina PA-C - Last Filed: 07/13/25 15:07>
General
Chief Complaint: Breathing Problem
Time Seen by Provider: 07/13/25 13:04
History of Present Illness
History of Present Illness:
Audrey is a 79-year-old female with past medical history of lung cancer and recurrent pericardial effusions requiring drainage who had a outpatient echocardiogram that shows increased pericardial effusion and was sent in by her cardiothoracic
surgeon. She reports increasing shortness of breath with exertion. Offers no other complaints.
Past History
<Melba Medina PA-C - Last Filed: 07/13/25 15:07>
Past History
ED Past Medical History: Other (Parkinson's disease)
ED Past Surgical History: Brain
Social History
Tobacco: Non-smoker
Alcohol: Occasional
Drug: None
Personal:
Living: with family
Phy Exam
<Melba Medina PA-C - Last Filed: 07/13/25 15:07>
General Physical Exam
General Presentation: well appearing and no apparent distress
General Skin: warm and dry
General Habitus: normal
General Mental: alert
General Hydration: appears well hydrated
ENT Exam
ENT Exam: EOMI, pharynx normal, neck supple and normocephalic
Eye Exam
Eye Exam: PERRL, cornea clear and conjunctiva normal
Cardiovascular Exam
Cardiovascular Exam: regular rate/rhythm, no edema, no murmur and normal peripheral pulses
Pulmonary Exam
Pulmonary Exam: lungs clear, no respiratory distress, no rales, no crackles, no rhonchi, no stridor, no wheezing and no cough
Gastrointestinal Exam
Gastrointestinal Exam: normal bowel sounds, non tender, soft, no organomegaly, no pulsatile mass and non distended
Neurological Exam
Neurological Exam: alert, oriented x3, no motor deficits and speech normal
Musculoskeletal Exam
Musculoskeletal Exam: full ROM and no edema
Skin Exam
Skin Exam: normal color, warm/dry, no rash and no petechia
Psychiatric Exam
Psychiatric Exam: normal mood/affect
Scores
<Melba Medina PA-C - Last Filed: 07/13/25 15:07>
Heart Failure Risk
Heart Failure Risk Score: Not Applicable
Course
<Melba Medina PA-C - Last Filed: 07/13/25 15:07>
Orders/Labs/Results
Orders:
Orders
07/13/25 12:12
EKG [Electrocardiogram (*1)] Urgent
Reason for Study: Shortness of Breath
EKG- Treatment ONCE
07/13/25 13:30
Basic Metabolic Panel Urgent
Complete Blood Count/With Diff Urgent
NT-proBNP Urgent
Troponin I Urgent
07/13/25 14:17
Electrocardiogram (*1) Urgent
Reason for Study: Abnormal EKG
EKG- Treatment ONCE
07/13/25 14:32
ANESTHESIA CONSULT Routine
Consulting Provider: Tyron Joseph
Consult for:: Other reason
Was physician already notified: Yes
Reason for consult: pre-op CT surgery
07/13/25 14:33
* Blood Bank Products Routine
Blood Bank Products: *Packed RBC Leuko (PRBC's
Quantity: 1
Transfuse Today: Hold Periop CT Surgery
Is product needed for scheduled surgery?: Yes
Expected Surgery Date: TOMORROW
Reason: Other
Other reason: cardiothoracic surgery
VTE Contraindication Routine
VTE Mechanical Device Contraindication: Surgical Contraindication
Pharmocologic Contraindication: Medical Contraindication
OR/Surgery Prep As Directed
Type of Prep: shower or bathe patient with 4% CHG night before surgery.
Comment: DOS: cleanse pt with 2% CHG wipes. Complete clip/prep for scheduled surgery
07/13/25 14:34
Type+Screen Routine
07/13/25 14:36
Rx Incentive Spirometry [RESP] Routine
Frequency: q1h
Comment: instruction and assessment for postop 10 times x q1hr
07/13/25 14:37
Pft Spirometry At Bedside [RESP] Routine
Special Instructions: pre-operative cardiothoracic surgery
07/13/25 14:56
Admit/Transfer Patient As Directed
Co-Sign Provider:
Level of Care: Inpatient admission
Assign to:: IVU
Physician / Group: Onesimo Blevins
Diagnosis: pericardial effusion, lung cancer
Reason for Hospitalization: pericardial effusion, lung cancer
Expected length of stay greater than two midnights?: Yes
ELOS- Estimated Length of Stay in days: 3
I certify the patient meets the requirements for IP care: Yes
PRN Pain Medication Management As Directed
May give lesser potent ordered pain med per pt: Yes
preference::
Protocol:: Medication orders for pain may be administered in a
manner that supports deferring to patient preference
when the pt is:
- Requesting an ordered lesser potent pain medication.
Least to most potent pain medications are defined
as: acetaminophen < NSAID < tramadol < opioids
(morphine, oxycodone, hydromorphone).
- Requesting a lesser dose of the same medication IF
ORDERED.
- Requesting a less intrusive route of administration
if both routes are prescribed by the provider (PO <
IV).
07/13/25 14:58
Code Status As Directed
Resuscitation Status: Full Code
07/14/25 06:00
Electrocardiogram (*1) IN AM
Reason for Study: Other
Other Reason for Exam: pre-operative cardiothoracic surgery
NPO
Allow oral meds: Yes
Allow clear liquids: No
NPO for procedure after (time): MIDNIGHT
Basic Metabolic Panel IN AM
Complete Blood Count/No Diff IN AM
Glycohemoglobin (HgbA1c) IN AM
[id number]-Scbfqdd IN AM
PTT IN AM
Prothrombin Time IN AM
Bupivacaine Mpf 0.25% [Sensorcaine-Mpf 0.25% Vial] 30 ml EPINEPHrine PF [Adrenalin] 0.15 mg Dexamethasone Sod Phos Pf [Decadron] 3 mg Syringe [Syringe Non-Pump] 0 ml INJ ONCE@0600,0601
CeFAZolin 2 GRAM [Ancef] 2 grams in 10 ml IV CVOR@0600,0700
Activity As Directed
Activity Level: As Tolerated
Notify MD As Directed
Notify physician if: Contact physician if patient has received any of the following agents within the previous
5 days:
Warfarin (Coumadin) Clopidogrel (Plavix)
Dabigatran (Pradaxa) Ticagrelor (Brillinta)
Rivaroxiban (Xarelto) Prasugrel (Effient)
Apixaban (Eliquis) Cilostazol (Pletal)
Enoxaparin (Lovenox) Pentoxifylline (Trental)
Edoxaban (Savaysa) Dipyridamole/Aspirin (Aggrenox)
Notify MD As Directed
Notify physician if: patient received or is scheduled/ordered to receive within 24 hours prior to surgery any:
- angiotension converting enzyme (MAGNO) inhibitors
- angiotension receptor blockers (ARB)
including combination products containing one of these agents.
Patient Education As Directed
Type: [facility]
Comment: pre-operative teaching. Give patient/family [facility] education material
Patient scheduled for CT Surgery As Directed
Type of surgery: RA pericardial window
Date of scheduled surgery: 07/14/25
Discontinue Heparin drip if ordered: patient navigator to OR
Weight As Directed
Frequency: Once
Comment: record patient's height and weight
Abnormal Lab Results
07/13/25
13:30
MPV 10.8 H fL
(7.4-10.4)
Absolute Lymphs (auto) 1.0 L 10^3/uL
(1.2-3.4)
Lymphocytes % 18.6 L %
(20.5-51.1)
Monocytes % 10.6 H %
(1.7-9.3)
Eosinophils % 6.5 H %
(0-6)
07/13/25 13:30
07/13/25 13:30
Vital Signs
Initial and Last Documented VS:
Initial Vital Signs
Temp Pulse Resp BP Pulse Ox
98.0 F 58 18 112/76 97
07/13/25 12:26 07/13/25 12:26 07/13/25 12:26 07/13/25 12:26 07/13/25 12:26
Last Documented Vital Signs
Temp Pulse Resp BP Pulse Ox
98.0 F 53 14 164/109 97
07/13/25 12:26 07/13/25 15:00 07/13/25 15:00 07/13/25 13:00 07/13/25 15:06
Toñolt;Darshan Arciniega, - Last Filed: 07/13/25 16:47>
Orders/Labs/Results
Orders:
Orders
07/13/25 12:12
EKG [Electrocardiogram (*1)] Urgent
Reason for Study: Shortness of Breath
EKG- Treatment ONCE
07/13/25 13:30
Basic Metabolic Panel Urgent
Complete Blood Count/With Diff Urgent
NT-proBNP Urgent
Troponin I Urgent
07/13/25 14:17
Electrocardiogram (*1) Urgent
Reason for Study: Abnormal EKG
EKG- Treatment ONCE
07/13/25 14:32
ANESTHESIA CONSULT Routine
Consulting Provider: Tyron Joseph
Consult for:: Other reason
Was physician already notified: Yes
Reason for consult: pre-op CT surgery
07/13/25 14:33
* Blood Bank Products Routine
Blood Bank Products: *Packed RBC Leuko (PRBC's
Quantity: 1
Transfuse Today: Hold Periop CT Surgery
Is product needed for scheduled surgery?: Yes
Expected Surgery Date: TOMORROW
Reason: Other
Other reason: cardiothoracic surgery
VTE Contraindication Routine
VTE Mechanical Device Contraindication: Surgical Contraindication
Pharmocologic Contraindication: Medical Contraindication
OR/Surgery Prep As Directed
Type of Prep: shower or bathe patient with 4% CHG night before surgery.
Comment: DOS: cleanse pt with 2% CHG wipes. Complete clip/prep for scheduled surgery
07/13/25 14:34
Type+Screen Routine
07/13/25 14:36
Rx Incentive Spirometry [RESP] Routine
Frequency: q1h
Comment: instruction and assessment for postop 10 times x q1hr
07/13/25 14:37
Pft Spirometry At Bedside [RESP] Routine
Special Instructions: pre-operative cardiothoracic surgery
07/13/25 14:56
Admit/Transfer Patient As Directed
Co-Sign Provider:
Level of Care: Inpatient admission
Assign to:: IVU
Physician / Group: Onesimo Blevins
Diagnosis: pericardial effusion, lung cancer
Reason for Hospitalization: pericardial effusion, lung cancer
Expected length of stay greater than two midnights?: Yes
ELOS- Estimated Length of Stay in days: 3
I certify the patient meets the requirements for IP care: Yes
PRN Pain Medication Management As Directed
May give lesser potent ordered pain med per pt: Yes
preference::
Protocol:: Medication orders for pain may be administered in a
manner that supports deferring to patient preference
when the pt is:
- Requesting an ordered lesser potent pain medication.
Least to most potent pain medications are defined
as: acetaminophen < NSAID < tramadol < opioids
(morphine, oxycodone, hydromorphone).
- Requesting a lesser dose of the same medication IF
ORDERED.
- Requesting a less intrusive route of administration
if both routes are prescribed by the provider (PO <
IV).
07/13/25 14:58
Code Status As Directed
Resuscitation Status: Full Code
07/14/25 06:00
Electrocardiogram (*1) IN AM
Reason for Study: Other
Other Reason for Exam: pre-operative cardiothoracic surgery
NPO
Allow oral meds: Yes
Allow clear liquids: No
NPO for procedure after (time): MIDNIGHT
Basic Metabolic Panel IN AM
Complete Blood Count/No Diff IN AM
Glycohemoglobin (HgbA1c) IN AM
Cvjtq-Hjln-Zaudasq IN AM
PTT IN AM
Prothrombin Time IN AM
Bupivacaine Mpf 0.25% [Sensorcaine-Mpf 0.25% Vial] 30 ml EPINEPHrine PF [Adrenalin] 0.15 mg Dexamethasone Sod Phos Pf [Decadron] 3 mg Syringe [Syringe Non-Pump] 0 ml INJ ONCE@0600,0601
CeFAZolin 2 GRAM [Ancef] 2 grams in 10 ml IV CVOR@0600,0700
Activity As Directed
Activity Level: As Tolerated
Notify MD As Directed
Notify physician if: Contact physician if patient has received any of the following agents within the previous
5 days:
Warfarin (Coumadin) Clopidogrel (Plavix)
Dabigatran (Pradaxa) Ticagrelor (Brillinta)
Rivaroxiban (Xarelto) Prasugrel (Effient)
Apixaban (Eliquis) Cilostazol (Pletal)
Enoxaparin (Lovenox) Pentoxifylline (Trental)
Edoxaban (Savaysa) Dipyridamole/Aspirin (Aggrenox)
Notify MD As Directed
Notify physician if: patient received or is scheduled/ordered to receive within 24 hours prior to surgery any:
- angiotension converting enzyme (MAGNO) inhibitors
- angiotension receptor blockers (ARB)
including combination products containing one of these agents.
Patient Education As Directed
Type: [facility]
Comment: pre-operative teaching. Give patient/family [facility] education material
Patient scheduled for CT Surgery As Directed
Type of surgery: RA pericardial window
Date of scheduled surgery: 07/14/25
Discontinue Heparin drip if ordered: patient navigator to OR
Weight As Directed
Frequency: Once
Comment: record patient's height and weight
Abnormal Lab Results
07/13/25
13:30
MPV 10.8 H fL
(7.4-10.4)
Absolute Lymphs (auto) 1.0 L 10^3/uL
(1.2-3.4)
Lymphocytes % 18.6 L %
(20.5-51.1)
Monocytes % 10.6 H %
(1.7-9.3)
Eosinophils % 6.5 H %
(0-6)
07/13/25 13:30
07/13/25 13:30
Vital Signs
Initial and Last Documented VS:
Initial Vital Signs
Temp Pulse Resp BP Pulse Ox
98.0 F 58 18 112/76 97
07/13/25 12:26 07/13/25 12:26 07/13/25 12:26 07/13/25 12:26 07/13/25 12:26
Last Documented Vital Signs
Temp Pulse Resp BP Pulse Ox
98.0 F 53 14 164/109 97
07/13/25 12:26 07/13/25 15:00 07/13/25 15:00 07/13/25 13:00 07/13/25 15:06
<Melba Medina PA-C - Last Filed: 07/13/25 15:07>
MDM/Problems Addressed
Differential Diagnosis Includes:
Discussed case with cardiothoracic surgery who request patient be admitted to the IVU for planned robotic pericardial window tomorrow. EKG obtained shows shows sinus bradycardia with PACs and low voltage QRS. Discussed case with the hospitalist
who will admit the patient.
<Melba Medina PA-C - Last Filed: 07/13/25 15:07>
*Pulse Oximetry
SaO2: 97
Oxygen Mode of Delivery: Room air
Patient hypoxic: no
*Critical Care Note
Total Time (30-74mins, 75-104mins- exclusive of procedures): Not Applicable
ED Attending Note
<Melba Medina PA-C - Last Filed: 07/13/25 15:07>
-
Portions of this chart may have been created with voice recognition software.� Occasional wrong word or��sound alike� substitutions may have occurred due to the inherent limitations of voice recognition software.
<Darshan Arciniega DO - Last Filed: 07/13/25 16:47>
ED Attending Note
Patient seen and examined by attending physician: Yes
I performed the substantive portion of visit, reviewed & personally made and approve the management plan that is documented in note by myself or BIANCA.: Yes
ED Attending Note:
I agree with Carlene's note
79-year-old female referred to the emergency room after a echocardiogram from a couple days ago showed a large pericardial effusion. Patient's been feeling shortness of breath with exertion and generalized weakness. She has a history of lung
cancer. No fever or chills. No syncope. No chest pain.
General: Awake, Alert, Oriented X3. No acute distress.
Vitals: unremarkable
Head: Atraumatic
Eyes: Pupils equal, EOMI
Throat: Airway intact, no exudates
Neck: Trachea midline
Lungs: Clear and equal b/l
Heart: Regular rate, no murmurs
Abd: Soft, Nontender, No pulsatile mass
Rectal:
Neuro: Cranial nerves intact, muscle strength equal bilaterally, cerebellar exam normal
Skin: Warm, dry, no rash
Extremities: pulses equal b/l, no edema
Discharge Plan
Departure
Patient Disposition: Admit
Date of Disposition: 07/13/25
Time of Disposition: 13:52
Presentation/result/management discussed w/ accepting MD/DO: Hospitalist
Discharge Problem:
Pericardial effusion, Lung mass
Interventions
Interventions:
*Risk Screen - Suicide Last Done: 07/13/25 12:26
*General Assessment Last Done: 07/13/25 12:26
*Neglect/Abuse Screening Last Done: 07/13/25 12:26
*ED Influenza Vaccine History Last Done: 07/13/25 12:26
[facility] Risk Assessment Tool Last Done: 07/13/25 13:35
ED- Cardiac Assessment Last Done: 07/13/25 14:09
ED- Pulmonary Assessment Last Done: 07/13/25 14:09
--- NOTE | 2025-07-13 15:38 | CONSULT.CT ---
Consultation
-
Date/Time Consultation Requested: 07/13/25 1300
Date/Time Consultation Performed: 07/13/25 1530
Requesting Provider: Rosy ROLDAN
Performing Provider: Kirsten ROLDAN for Antolin SAAVEDRA
Reason for Consultation: Recurrent pericardial effusion
Patient History
Physicians
Family Physician: Dr. Bessie Monte MD.
History of Present Illness
79-year-old female with past medical history significant for Parkinson's disease s/p DBS, GERD, lung cancer, recurrent pericardial effusion presents to the emergency room with dyspnea on exertion and after recommendation from her oncologist after a
transthoracic echocardiogram showed that the pericardial effusion was increased in size. Of note patient gets repeat echocardiograms every 2 weeks to monitor this pericardial effusion. Initially, patient was recommended to see the surgeon
outpatient but due to the diagnosis the patient was referred to the emergency room. CT surgery was consulted for pericardial window.
Past Medical History
Past Medical History: Other
Parkinson's disease status post deep brain stimulator
GERD
Multiple pneumonias
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
Past Surgical History
Past Surgical History: Other
Deep brain stimulator implanted in 2021 secondary to Parkinson's disease
Bronchoscopy 2018 performed at [facility]
ovarian cyst removal
Family History
Family Medical History: Cancer
Social History
Alcohol: None
Drug: None
Tobacco: Non-Smoker
Personal:
Living: With Spouse
Employment: Retired
Allergies
Allergy/AdvReac Type Severity Reaction Status Date / Time
No Known Allergies Allergy Verified 07/13/25 12:31
Home Medications
�Medication �Instructions �Recorded �Confirmed �Type
calcium carbonate (Tums) 200 mg PO DAILY 07/13/25 07/13/25 History
cholecalciferol (vitamin D3) 25 25 mcg PO DAILY 07/13/25 07/13/25 History
mcg (1,000 unit) tablet (Vitamin
D3)
clotrimazole 1 % topical cream 1 applic topical BID feet 07/13/25 07/13/25 History
cyclosporine 0.05 % eye drops 1 drp BOTH EYES Q12H 07/13/25 07/13/25 History
lotilaner 0.25 % eye drops (Xdemvy) 1 drp BOTH EYES Q12H 07/13/25 07/13/25 History
oxybutynin chloride 5 mg tablet 5 mg PO DAILY 07/13/25 07/13/25 History
pantoprazole 40 mg tablet,delayed 40 mg PO DAILY 07/13/25 07/13/25 History
release
Review of Systems
-
History Source: Patient
General: Reports No Symptoms
HEENT: Reports No Symptoms
Respiratory: Reports SOB
Cardiac: Reports No Symptoms
Abdomen/GI: Reports No Symptoms
: Reports No Symptoms
Musculoskeletal: Reports No Symptoms
Skin: Reports No Symptoms
Neurological: Reports No Symptoms
Vascular: Reports No Symptoms
Physical Exam
Vital Signs
Temp 98.0 F 07/13/25 12:26
Temp route: Oral 07/13/25 12:26
Pulse 53 07/13/25 15:00
Resp Rate 14 07/13/25 15:00
Blood pressure 164/109 07/13/25 13:00
MAP (cuff-Shade Monitor) 120 07/13/25 13:00
SaO2 97 07/13/25 15:06
Oxygen Mode of Delivery Room air 07/13/25 15:06
Actual Weight 94 kg 07/13/25 13:22
Body Mass Index (BMI) 37.3 07/13/25 13:22
Labs
07/13/25 13:30
07/13/25 13:30
Troponin I < 0.012 ng/ml 07/13/25 13:30
Lql-K-Tqfwblrdvne Pept 126 pg/ml 07/13/25 13:30
Exam
General: Well Developed, Well Nourished and No Apparent Distress
HEENT: Normocephalic
Respiratory: Crackles
GI: Soft
Rectal: Deferred by Provider
Skin: Warm
Neuro: AO x 3
Lymph: No Lymphadenopathy
Psych: Calm
Assessment / Plan
-
79-year-old female with past medical history listed above presents with recurrent pericardial effusions. CT surgery was consulted for a pericardial window.
#Recurrent pericardial effusion
- Patient is tentatively scheduled for a robotic assisted pericardial window tomorrow (07/14/25) with Dr. Dangelo
- Will send type and screen and check PFTs
- Dr. Dangelo has seen and consented the patient
- Anesthesia consult
- Admit patient to IVU
#Parkinson disease s/p DBS
- Deep brain stimulator will be turned off for procedure
--- NOTE | 2025-07-13 19:36 | PTCARENOTE ---
Received pt from ER into 2248. Pt is AAOx3 SR on the monitor VSS. Plan of care discussed with pt. Call [facility] within reach
[2025-07-13] MEDS: LOTRIMIN 1% CREAM 1 APPLIC TOPICAL (19:37)
[2025-07-13] MEDS: RESTASIS 0.05% OPHTHALMIC EMULSION 1 DROPS BOTH EYES (19:38)
--- NOTE | 2025-07-13 23:02 | PTCARENOTE ---
Received patient at change of shift. SR on the monitor HR in the 60s. Pt clipped and CHG shower completed. NPO at midnight. No complaints from pt at this time, call [facility] within reach.
[2025-07-14] VITALS (14 sets, daily range): BP systolic 121–171; BP diastolic 51–88; BMI 36.4
[2025-07-14 06:03] LABS: APTT 22.0 Sec (23.4-35.0); INR 1.07; PT 13.7 Sec (11.4-14.6)
[2025-07-14 06:19] LABS: ALT (SGPT) 18 U/L (0-35); AST (SGOT) 22 U/L (14-36); Albumin 4.0 g/dl (3.5-5.0); Alkaline Phosphatase 62 U/L (38-126); Blood Urea Nitrogen 17 mg/dl (7-17); Calcium 9.1 mg/dl (8.4-10.2); Carbon Dioxide 25 mmol/L (22-30); Chloride 108 mmol/L (98-107); Estimated Creatinine Clearance 81 ml/min; Glucose 109 mg/dl (70-99); Potassium 4.2 mmol/L (3.5-5.1); Sodium 138 mmol/L (135-145); Total Protein 6.7 g/dl (6.3-8.2); eGFR > 60.00
[2025-07-14 06:20] LABS: Hematocrit 36.7 % (37.0-47.0); Hemoglobin 12.8 g/dL (12.0-16.0); Mean Corp Hgb Conc. 34.9 g/dL (33.0-37.0); Mean Corpuscular Volume 89.3 fL (81.0-99.0); Platelet Count 140 10^3/uL (130-400); Red Cell Dist. Width 13.2 % (11.5-14.5)
--- NOTE | 2025-07-14 08:08 | W.PN.HOSP.TC ---
Today's Communication/Plan
-
Robotic window pericardial effusion today
Follow cardiothoracic recs
Assessment / Plan
Assessment / Plan
Impression
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
cardial effusion on recent echocardiogram and was referred to the hospital by CT surgery. �Shortness of breath and lightheadedness.
Imaging
Echo 07/11/2025
1. Ejection fraction is 60-65% by visual assessment.
2. Right ventricular size and systolic function are within normal limits.
3. Large circumferential pericardial effusion without evidence of tamponade physiology.
4. Compared to prior study dated 06/27/2025 which was directly reviewed, pericardial effusion was previously called moderate in size and is now large
EKG 07/13/2025
SINUS BRADYCARDIA WITH PREMATURE ATRIAL COMPLEXES
LOW VOLTAGE QRS
LATERAL INFARCT
PET 03/23/2025
Large mass centered at the left hilum with increased metabolic activity. Neoplasm to be excluded.
FDG avid adenopathy near the left tracheoesophageal groove and adjacent to the posterior margin of the mid left clavicle.
Hypermetabolic small right thyroid nodule, which may be benign or malignant. Recommend ultrasound correlation as well as consideration to biopsy.
Non-FDG avid 9 mm pulmonary nodule at the right lung base.
FDG avid mild mediastinal adenopathy.
Diffuse, nonfocal mild FDG activity associated with small left pleural effusion and small pericardial effusion.
Suspected FDG avid hepatic metastatic lesions, though difficult to define anatomically. Recommend further evaluation/follow-up MRI.
Nonspecific incidental tiny left inguinal lymph node, though with increased metabolic activity. This may be infectious or neoplastic
Plan
Malignant neoplasm of the left upper lobe lung with evidence of metastatic disease to liver/bone
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
-Prior pericardial effusion in March 2025
-Outpatient echo biweekly, recent echo 07/11/2025 -large circumferential pericardial effusion
-Consult cardiothoracic surgery, input appreciated
-Admit to IVU
-Scheduled for window pericardial effusion on 07/14/[address] Dangelo
-labs unremarkable
EKG: SINUS BRADYCARDIA WITH PREMATURE ATRIAL COMPLEXES
LOW VOLTAGE QRS
LATERAL INFARCT , AGE UNDETERMINED
GERD
- continue Protonix
Parkinson's disease s/p brain stimulator
- stable
Pancreatic divisum with pancreatic cyst in the pancreatic head
Code status: full code
DVT prophylaxis: SCDs
Anticipated Discharge: > 48 hours
Subjective/Interval History
-
Date of Service: July 14, 2025
She is comfortable sitting on the couch. She denies shortness of breath, chest pain, palpitations, abdominal pain. She feels a little bit anxious because of robotic window pericardial effusion surgery today.
Objective Data
-
Labs:
Laboratory Results
07/14/25
05:25
WBC 4.6 L
Hgb 12.8
Hct 36.7 L
Plt Count 140
PT 13.7
INR 1.07
APTT 22.0 L
Sodium 138
Potassium 4.2
Chloride 108 H
Carbon Dioxide 25
BUN 17
Creatinine 0.6
Glucose 109 H
Calcium 9.1
Total Bilirubin 0.9
AST 22
ALT 18
Alkaline Phosphatase 62
Vital Signs:
Vital Signs
Temp Pulse Resp BP Pulse Ox
97.5 F 54 18 121/51 96
07/14/25 07:20 07/14/25 07:17 07/14/25 07:20 07/14/25 07:17 07/14/25 07:20
Review of Systems
-
History Source: Patient
Constitutional: Reports No Symptoms
EENT: Reports No Symptoms Reported
Respiratory: Reports No Symptoms
Cardiac: Reports No Symptoms
Abdomen/GI: Reports No Symptoms
Breast: Reports No Symptoms
Genitourinary: Reports No Symptoms
Musculoskeletal: Reports No Symptoms
Skin: Reports No Symptoms
Neuro: Reports No Symptoms
Endocrine: Reports No Symptoms
Hematologic / Lymphatic: Reports No Symptoms
Psych: Reports Anxious
Physical Exam
-
General: Well Developed, Well Nourished, No Apparent Distress, Comfortable, Conversant and Obese
HEENT: Normocephalic and Atraumatic
Respiratory: Clear to Auscultation
Cardiac: Regular Rhythm, S1/S2 and Murmur (RUSB)
Breast: Deferred by me
GI: Soft, Nontender, Nondistended and Normal Bowel Sounds
Rectal: Deferred by Provider
Genito-urinary: Deferred by me
Musculoskeletal: No Clubbing, No Cyanosis and Edema, Left Lower Extrem
Skin: Warm and Dry
Neuro: AO x 3, No Motor Deficits, Nonfocal/Grossly Intact and No Sensory Deficits
Psych: Calm
[2025-07-14] MEDS: DITROPAN 5 MG PO (08:38)
[2025-07-14] MEDS: PROTONIX 40 MG PO (08:38)
[2025-07-14] MEDS: RESTASIS 0.05% OPHTHALMIC EMULSION 1 DROPS BOTH EYES ×2 (08:39→22:02)
[2025-07-14] MEDS: LOTRIMIN 1% CREAM TOPICAL (08:39)
[2025-07-14] MEDS: FLUSH (NSS) 1 FLUSH IV (08:44)
[2025-07-14 10:56] LABS: Glycohemoglobin (HgbA1c) 5.6 % (4.0-5.9)
[2025-07-14] MEDS: ANCEF 10 IV ×2 (11:35→12:02)
[2025-07-14 11:49] LABS: Urine Character Clear (Clear)
[2025-07-14 12:11] LABS: Urine Squamous Cell 21-25 /LPF (Few)
--- NOTE | 2025-07-14 12:46 | W.CVOR.SURPR ---
CVOR Surgeon Immed Pre Op
-
I have examined this patient prior to performance of the scheduled procedure.
The patient's condition is unchanged from the time of the dictated/written History and
Physical and the patient is able to undergo the scheduled procedure.
--- NOTE | 2025-07-14 12:47 | W.IMMPOSTOP ---
Addendum entered and electronically signed by Joseph Dangelo MD 07/14/25 14:53:
[id number]
Original Note:
Surgical Immed Post Op Note
-
CARDIAC SURGERY OPERATIVE NOTE:
Preoperative Dx:
Recurrent pericardial effusion
well-differentiated neuroendocrine tumor, WHO grade 2 - metastatic
Postoperative Dx:
Same
Procedures:
Left mini-anterolateral thoracotomy (~3.5cm)
Pericardial window
Lysis of pericardial/apical adhesions
Drainage of pericardial effusion (~500mL)
Surgeon:
Joseph Dangelo M.D.
Filer Repairer:
Kavya Hutchinson P.A.-C.
Anesthesia:
Skinny Lance M.D. and Izzy HendersonN.A.; GET (dual-lumen tube w/o need for isolated lung ventilation)
30cc 0.25% bupivacaine local
Findings:
Slightly thickened, but smooth pericardium
Drainage of serous pericardial effusion (fluid sent for cytology)
There were limited apical adlqmokecs-ds-bzcczjxpsmr adhesions which were successfully divided w/ combination of blunt, sharp, and electrocautery; NATHALIA time ~ 15min
Resection of portion of anterolateral pericardium (sent for pathology)
Drains:
24Fr pericardial nataly drain (anterior)
24Fr pleural nataly drain (posterior)
Complications:
None
Condition:
Stable/guarded
Anesthesia planning for operative extubation
[2025-07-14] MEDS: DILAUDID 0.25 MG IV ×3 (13:43→15:00)
[2025-07-14 14:23] LABS: Blood Urea Nitrogen 14 mg/dl (7-17); Calcium 8.6 mg/dl (8.4-10.2); Carbon Dioxide 25 mmol/L (22-30); Chloride 106 mmol/L (98-107); Estimated Creatinine Clearance 81 ml/min; Glucose 130 mg/dl (70-99); Potassium 4.3 mmol/L (3.5-5.1); Sodium 139 mmol/L (135-145); eGFR > 60.00
[2025-07-14] MEDS: FLUSH (NSS) 2 FLUSH IV ×2 (15:02→16:03)
[2025-07-14] MEDS: TYLENOL 1000 MG PO ×2 (15:02→22:02)
[2025-07-14] MEDS: NEURONTIN 100 MG PO ×2 (15:02→22:02)
--- NOTE | 2025-07-14 15:17 | PTCARENOTE ---
Addendum entered by Rita Medina RN 07/14/25 16:01:
Lung sounds were coarse throughout.
Original Note:
Received the patient from PACU in her bed. The patient is aaox3. Her vital signs are stable, 97% on RA. NSR with a first degree AVB is noted. She has a dual port chest tube that is draining red fluid. Her chest tube dressing is c/d/i. No tidaling or
crepitus is noted. She complains of left lateral pain, 'under my ribs' and rates it a 10/10 on scale. Dilaudid given as ordered. She has a weak productive cough that is producing red tinged sputum. I encouraged her to cough stronger. She keeps
stating that she 'can't breath.' Her cough are becoming stronger with coaching. She is speaking without difficulty. Her family is at the bedside.
--- NOTE | 2025-07-14 15:58 | CM ---
Chart reviewed. Patient is in the OR today. Patient is independent of ADLS, lives with her at [facility], [address], 1 WANDA, 0 DME. Plan is for the patient to return home with CT Transitional RN. CM to follow
--- NOTE | 2025-07-14 16:00 | W.PN.UPDATE ---
Update Note
Progress Note Update
Patient seen and discussed with residents.
HPI: 79-year-old female past medical history of suspected malignant pericardial effusion status pericardiocentesis and drain placement, lung cancer on chemotherapy, Parkinson's disease, GERD, p/w a large pericardial effusion on recent echocardiogram
and was referred to the hospital by CT surgery.
A/P:
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
Prior pericardial effusion in March 2025
Outpatient echo biweekly, recent echo 07/11/2025 showed large circumferential pericardial effusion
CT surgery plan for drainage and Pericardial window 07/14/2025
# Metastatic lung cancer with mets to liver/bone and pericardial effusion
# GERD
continue Protonix
# Parkinson's disease s/p brain stimulator, stable
# Pancreatic divisum with pancreatic cyst in the pancreatic head
Code status: full code
DVT prophylaxis: SCDs
[2025-07-14] MEDS: DILAUDID 0.5 MG IV (16:03)
--- NOTE | 2025-07-14 20:00 | PTCARENOTE ---
Assumed care at 1900. Patient alert and oriented x3. Patient reports pain to chest tube insertion site. Pain management plan reviewed with patient. Chest tube dressing clean, dry, and intact. No crepitus noted. Chest tube remains to suction as
ordered. Chest tube draining serosanguineous fluid. Patient with frequent cough that is occasionally productive. Lungs diminished bilaterally. Patient aware of plan of care. Call [facility] and personal belongings within reach.
[2025-07-14] MEDS: ROXICODONE 5 MG PO (20:47)
[2025-07-14] MEDS: ANCEF 5 IV (20:48)
[2025-07-14] MEDS: LOTRIMIN 1% CREAM 1 APPLIC TOPICAL (20:54)
[2025-07-15] VITALS (40 sets, daily range): BP systolic 70–117; BP diastolic 38–94
[2025-07-15] MEDS: ANCEF 5 IV ×2 (04:16→11:17)
[2025-07-15 05:46] LABS: Hematocrit 45.3 % (37.0-47.0); Hemoglobin 15.5 g/dL (12.0-16.0); Mean Corp Hgb Conc. 34.2 g/dL (33.0-37.0); Mean Corpuscular Volume 90.8 fL (81.0-99.0); Platelet Count 170 10^3/uL (130-400); Red Cell Dist. Width 13.2 % (11.5-14.5)
--- NOTE | 2025-07-15 05:54 | W.PN.CT ---
Addendum entered and electronically signed by Joseph Dangelo MD 07/15/25 08:56:
I saw and examined the patient.
The PA's note was reviewed and I agree with the note.
Comment:
POD#1 s/p pericardial window
Doing well
Split CTs today - likely remove pleural tube tomorrow; pericardial tube thursday pending drainage
OOB/IS/ambulate'
CXR improved
Original Note:
Today's Communication / Plan
-
-pod #1
-no issues overnight, no complaints
-CT outputs: pericardial and pleural CTs 170/550 serosang. fluid in 12/24 hrs
-CXR: L chest with opacification, looks slightly improved from yesterday
-encourage IS, OOB
Assessment / Plan
-
- Recurrent pericardial effusion- s/p Left mini-anterolateral thoracotomy (~3.5cm); Pericardial window; Lysis of pericardial/apical adhesions; Drainage of pericardial effusion (~500mL) by Dr. Dangelo
on 07/14/25, pod #1
- Well-differentiated neuroendocrine tumor, WHO grade 2 - metastatic
- Lung CA
- Parkinson's dz with deep brain stimulator for tremors
- GERD
Discussed patient care with: Nursing and Care Team
Subjective
-
Date of Service: July 15, 2025
Objective Data
-
Lab Results
07/15/25 04:46
PT 13.7 Sec (11.4-14.6) 07/14/25 05:25
INR 1.07 07/14/25 05:25
APTT 22.0 Sec (23.4-35.0) L 07/14/25 05:25
Vital Signs
Vital Signs
Temp Pulse Resp BP Pulse Ox
97.7 F 93 20 146/64 98
07/15/25 04:22 07/15/25 04:22 07/15/25 04:22 07/14/25 22:07 07/15/25 04:22
CT Intake/Output/Weight
07/14/25 07/14/25 07/15/25
06:59 18:59 06:59
Output Total 660 / 830 170 / 830
Balance -660 / -830 -170 / -830
SaO2: 98
Physical Exam
-
General: Awake and AOx3
Cardiovascular: Regular rate & rhythm, No Murmurs and Rub
Respiratory: Decreased Breath Sounds
Incision: Clean, Dry and Dressing Intact
Extremities: Edema +1
Data Reviewed
-
Lab Results: Results Reviewed
Medications: Active Meds Reviewed
Chest X-Ray: Report Reviewed and Image Reviewed
ECG: Report Reviewed and Image Reviewed
[2025-07-15 06:13] LABS: Blood Urea Nitrogen 15 mg/dl (7-17); Calcium 8.1 mg/dl (8.4-10.2); Carbon Dioxide 25 mmol/L (22-30); Chloride 103 mmol/L (98-107); Estimated Creatinine Clearance 81 ml/min; Glucose 119 mg/dl (70-99); Potassium 4.5 mmol/L (3.5-5.1); Sodium 137 mmol/L (135-145); eGFR > 60.00
[2025-07-15] MEDS: TYLENOL PO (06:19)
--- NOTE | 2025-07-15 08:10 | W.PN.ANS.POP ---
Anesthesia Post Operative
- Anesthesia Post Op Note
Vital Signs Stable-See Nursing Note: Yes
Airway Patent: Yes
Adequate Pain Control: Yes
Change in Mental Status: No
Current Postoperative Nausea & Vomiting: No
Anesthesia Complications: No
General Anesthetic Recall: No
Unplanned Admission: No
Post Op Hydration Adequate: Yes
- -
Pt awake and alert, VSS, no N/V. No anesthesia related c/o at time of post op visit.
[2025-07-15] MEDS: RESTASIS 0.05% OPHTHALMIC EMULSION 1 DROPS BOTH EYES ×2 (09:28→20:45)
[2025-07-15] MEDS: ROXICODONE 10 MG PO (09:28)
[2025-07-15] MEDS: PROTONIX 40 MG PO (09:28)
[2025-07-15] MEDS: DITROPAN 5 MG PO (09:28)
[2025-07-15] MEDS: NEURONTIN 100 MG PO ×3 (09:28→20:45)
[2025-07-15] MEDS: LOTRIMIN 1% CREAM 1 APPLIC TOPICAL ×2 (09:29→20:45)
--- NOTE | 2025-07-15 09:54 | W.PN.HOSP.TC ---
Today's Communication/Plan
-
Transfer to CVICU under management of CT surgery for further care
Assessment / Plan
Assessment / Plan
Impression:
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
cardial effusion on recent echocardiogram and was referred to the hospital by CT surgery. �Shortness of breath and lightheadedness.
Imaging:
Echo 07/11/2025
1. Ejection fraction is 60-65% by visual assessment.
2. Right ventricular size and systolic function are within normal limits.
3. Large circumferential pericardial effusion without evidence of tamponade physiology.
4. Compared to prior study dated 06/27/2025 which was directly reviewed, pericardial effusion was previously called moderate in size and is now large
EKG 07/13/2025
SINUS BRADYCARDIA WITH PREMATURE ATRIAL COMPLEXES
LOW VOLTAGE QRS
LATERAL INFARCT
PET 03/23/2025
Large mass centered at the left hilum with increased metabolic activity. Neoplasm to be excluded.
FDG avid adenopathy near the left tracheoesophageal groove and adjacent to the posterior margin of the mid left clavicle.
Hypermetabolic small right thyroid nodule, which may be benign or malignant. Recommend ultrasound correlation as well as consideration to biopsy.
Non-FDG avid 9 mm pulmonary nodule at the right lung base.
FDG avid mild mediastinal adenopathy.
Diffuse, nonfocal mild FDG activity associated with small left pleural effusion and small pericardial effusion.
Suspected FDG avid hepatic metastatic lesions, though difficult to define anatomically. Recommend further evaluation/follow-up MRI.
Nonspecific incidental tiny left inguinal lymph node, though with increased metabolic activity. This may be infectious or neoplastic
Plan:
Malignant neoplasm of the left upper lobe lung with evidence of metastatic disease to liver/bone
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
-Prior pericardial effusion in March 2025
-Outpatient echo biweekly, recent echo 07/11/2025 -large circumferential pericardial effusion
-Consult cardiothoracic surgery, input appreciated
-Admit to IVU
-Scheduled for window pericardial effusion on 07/14/[address] Dangelo
-500 cc drained from pericardium during procedure - fluid studies sent
-CT outputs: pericardial and pleural CTs 170/550 serosang. fluid in 12/24 hrs
-Appreciate CT surgery
Hypotension
-BP 70s/40s. Recieved 2 500cc fluid boluses
-CT surgery contacted and they transferred her to CVICU and their service for further management
Leukocytosis
- Likely secondary to stress from operation
- Monitor WBC
GERD
- continue Protonix
Parkinson's disease s/p brain stimulator
- stable
Pancreatic divisum with pancreatic cyst in the pancreatic head
Code status: full code
DVT prophylaxis: SCDs
Anticipated Discharge: 24 - 48 hours
Subjective/Interval History
-
Date of Service: July 15, 2025
She feels much better than she did prior to the procedure. She didn't realize she was overall feeling fatigued with the pericardial effusion until it was removed.
Objective Data
-
Labs:
Laboratory Results
07/15/25
04:46
WBC 12.1 H
Hgb 15.5 D
Hct 45.3
Plt Count 170 D
Sodium 137
Potassium 4.5
Chloride 103
Carbon Dioxide 25
BUN 15
Creatinine 0.6
Glucose 119 H
Calcium 8.1 L
Vital Signs:
Vital Signs
Temp Pulse Resp BP Pulse Ox
97.6 F 82 16 103/53 99
12/13/25 07:30 07/15/25 08:00 07/15/25 07:30 07/15/25 07:26 07/15/25 08:52
I&O
07/14/25 07/15/25 07/16/25
06:59 06:59 06:59
Output Total 830 / 830 600 / 600
Balance -830 / -830 -600 / -600
Review of Systems
-
History Source: Patient
EENT: Reports No Symptoms Reported
Respiratory: Reports No Symptoms
Cardiac: Reports No Symptoms
Abdomen/GI: Reports No Symptoms
Genitourinary: Reports No Symptoms
Skin: Reports No Symptoms
Neuro: Reports No Symptoms
Physical Exam
-
General: No Apparent Distress
HEENT: Normocephalic
Respiratory: Rhonchi and Chest Tubes
Cardiac: Regular Rhythm and S1/S2
GI: Soft, Nontender, Nondistended and Normal Bowel Sounds
Musculoskeletal: No Cyanosis and No Edema
Skin: Warm and Dry
Neuro: AO x 3
Psych: Calm
[2025-07-15] MEDS: SENOKOT-S 1 TABLET PO ×2 (11:17→20:45)
[2025-07-15] MEDS: LR 500 IV (12:47)
[2025-07-15] MEDS: NSS 500 IV (12:58)
[2025-07-15] MEDS: NSS 1000 IV (13:32)
[2025-07-15] MEDS: TYLENOL 1000 MG PO ×2 (13:39→20:45)
--- NOTE | 2025-07-15 14:15 | PTCARENOTE ---
Patient received at change of shift resting in the bed. SR on telemetry. Weaned to room air, pox 96-97%. Chest tube sites C/D/I, no crepitus noted. Serosanguineous output. CT surgery PA-C in to separate pleural and pericardial chest tubes to
individual atriums. Patient ambulated to bedside commode and then to the chair x2 assist, appears generally weak. Pain was mild while resting in the bed but increased to mod/severe while ambulating and sitting in the chair, PRN oxycodone 10mg given,
see MAR. Upon later checking BP the patient was noted to be hypotensive, SBP in the 70s. CT surgery PA-C Long made aware, 500cc LR bolus ordered and given. Hospitalist and resident also updated. The patient reported feeling tired but denied feeling
lightheaded or dizzy. SBP remained low, 80s to 90s, reached out to hospitalist Dr. Cao and Dr. Cronin, 500 NSS bolus ordered and given. Maintenance IVF also ordered and hung following bolus, see MAR. The patient continues to deny feeling lightheaded
or dizzy. Pericardial and pleural chest tubes remain intact, no crepitus noted, output serosanguineous. Patient wishes to remain resting in the chair until after lunch as she feels better sitting up. Continues to endorse feeling tired and 'a little
spacey' but answers orientation questions appropriately. Presently conversing with spouse who is it bedside. Call [facility]ington within reach. Plan of care discussed. Care ongoing.
--- NOTE | 2025-07-15 14:34 | W.PN.UPDATE ---
Update Note
Progress Note Update
Asked to evaluate the patient regarding hypotension. Patient is postop day 1 from left anterior thoracotomy, pericardial window. On evaluation this morning she was doing quite well on room air with appropriate chest tube output. Her pain is
well-controlled. She has had several blood pressure readings in the 80s to 90s systolic throughout the morning into early afternoon, her most recent reading was 117/94 with a MAP of 99. She received some IV fluid resuscitation with improvement in
her symptoms. On evaluation she is mentating appropriately and offers no complaints. She states she feels just fine. Given the nature of her condition there is some concern for RV failure in the setting of relief of cardiac compression in which
case aggressive fluid resuscitation would not be indicated and in fact harmful. For completeness we will check basic labs as well as a chest x-ray to ensure there is been no significant changes since earlier this morning. Out of abundance of
caution we will transfer the patient to our service and admitted to the CVICU for closer monitoring. I relayed this information to the patient and her and discussed this with Dr. Dangelo who is in agreement.
[2025-07-15 15:16] LABS: Hematocrit 44.0 % (37.0-47.0); Hemoglobin 14.9 g/dL (12.0-16.0); Mean Corp Hgb Conc. 33.9 g/dL (33.0-37.0); Mean Corpuscular Volume 93.4 fL (81.0-99.0); Platelet Count 170 10^3/uL (130-400); Red Cell Dist. Width 13.3 % (11.5-14.5)
--- NOTE | 2025-07-15 15:27 | W.PN.UPDATE ---
Update Note
Progress Note Update
Discussed case with resident
HPI: 79-year-old female past medical history of suspected malignant pericardial effusion status pericardiocentesis and drain placement, lung cancer on chemotherapy, Parkinson's disease, GERD, p/w a large pericardial effusion on recent echocardiogram
and was referred to the hospital by CT surgery.
A/P:
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
Prior pericardial effusion in March 2025
Outpatient echo biweekly, recent echo 07/11/2025 showed large circumferential pericardial effusion
s/p drainage and Pericardial window 07/14/[address]
Other medical conditions:
# Metastatic lung cancer with mets to liver/bone and pericardial effusion
# GERD, continue Protonix
# Parkinson's disease s/p brain stimulator, stable
# Pancreatic divisum with pancreatic cyst in the pancreatic head
Patient has been transferred to the CT surgery team.
Medicine team will no longer actively follow along.
Please call back for questions
[2025-07-15 15:35] LABS: Blood Urea Nitrogen 24 mg/dl (7-17); Calcium 8.6 mg/dl (8.4-10.2); Carbon Dioxide 25 mmol/L (22-30); Chloride 102 mmol/L (98-107); Estimated Creatinine Clearance 54 ml/min; Glucose 169 mg/dl (70-99); Potassium 3.9 mmol/L (3.5-5.1); Sodium 134 mmol/L (135-145); eGFR > 60.00
--- NOTE | 2025-07-15 16:20 | PTCARENOTE ---
Patient with continued low BPs. Transfer to CVICU per CT surgery EDSON and Dr. Dangelo. Report given to Olvin BERNAL, patient transferred down to 2261. Family aware. Belongings from IVU room 2249 taken to new room.
--- NOTE | 2025-07-15 17:24 | PTCARENOTE ---
Patient received from Cadence RN; AAOx3, responds spontaneously to RN and follows commands; VSS; NSR on monitor; +2 B/L LE edema; +2 DP and radial pulses; ARITA; Shallow respirations; SpO2 95-100% on 2L NC; CTx2 connected to -20 cm wall suction draining
serosanguineous drainage - no tidaling, crepitus, or air leak noted; Right lung base with rhonchi; + BS; Stress incontinence; Surgical sites intact; PIVx2; See nursing documentation for further information
[2025-07-15] MEDS: LOVENOX 40 MG SC (18:02)
--- NOTE | 2025-07-15 21:58 | PTCARENOTE ---
Patient received from RN @1900. Patient sitting in chair w/ call covington in reach. Patient stand and pivot to commode and then to bed x2 assist. AOx3. SR w/ first degree on monitor. BP 96/54 HR 81. Heart sounds audible but distant. Radial and
pedal pulses present. +2 lower leg edema noted. POX 97% 2L NC. Lungs diminished in bases bilaterally. Shallow respirations. Weak non productive cough noted. [address] and [address] set to -20 suction draining
serosanguineous fluid. No crepitus, tidaling, or air leaks noted. Patient confirms previous BM. Bowel sounds hypoactive. Purewick in place for stress incontinence. All surgical wounds C/D/I. PIV in left hand removed due to leaking. PIV in
left forearm patent and intact. See worklist for more details.
[2025-07-16] VITALS (12 sets, daily range): BP systolic 96–119; BP diastolic 52–91; BMI 37.5
--- NOTE | 2025-07-16 00:30 | PTCARENOTE ---
patient reassessed. Patient sleeping comfortably w/ call covington in reach. SR/ first degree on monitor. BP 84/47 HR 74 POX 97% 2L NC.
[2025-07-16 04:50] LABS: Hematocrit 41.8 % (37.0-47.0); Hemoglobin 14.1 g/dL (12.0-16.0); Mean Corp Hgb Conc. 33.7 g/dL (33.0-37.0); Mean Corpuscular Volume 92.1 fL (81.0-99.0); Platelet Count 153 10^3/uL (130-400); Red Cell Dist. Width 13.6 % (11.5-14.5)
[2025-07-16 05:14] LABS: Blood Urea Nitrogen 24 mg/dl (7-17); Calcium 8.6 mg/dl (8.4-10.2); Carbon Dioxide 25 mmol/L (22-30); Chloride 105 mmol/L (98-107); Estimated Creatinine Clearance 70 ml/min; Glucose 152 mg/dl (70-99); Potassium 4.2 mmol/L (3.5-5.1); Sodium 135 mmol/L (135-145); eGFR > 60.00
--- NOTE | 2025-07-16 05:31 | PTCARENOTE ---
Patient reassessed. Labs drawn SR w/ first degree on monitor. VSS.
--- NOTE | 2025-07-16 06:11 | W.PN.CT ---
Addendum entered and electronically signed by Joseph Dangelo MD 07/16/25 10:45:
I saw and examined the patient.
The PA's note was reviewed and I agree with the note.
Comment:
POD#2 - s/p pericardial window
Maintain pericardial and pleural drains today
Encourage IS/OOB/chest PT/SCDs
Original Note:
Today's Communication / Plan
-
-pod #2
-no overnight events
-Return to CVICU for low BP. Fluid responsive, no pressors required. MAP at goal
-CTs: Pl 55/120 cc out and pericardial 60/85 cc out in 12/24 hrs
-CXR: L chest with increased opacification. on 2 L NC.
-encourage IS, OOB
Assessment / Plan
-
- Recurrent pericardial effusion- s/p Left mini-anterolateral thoracotomy (~3.5cm); Pericardial window; Lysis of pericardial/apical adhesions; Drainage of pericardial effusion (~500mL) by Dr. Dangelo
on 07/14/25, pod #2
- Well-differentiated neuroendocrine tumor, WHO grade 2 - metastatic
- Lung CA
- Parkinson's dz with deep brain stimulator for tremors
- GERD
Subjective
-
Date of Service: July 16, 2025
Objective Data
-
Lab Results
07/16/25 04:41
07/16/25 04:41
PT 13.7 Sec (11.4-14.6) 07/14/25 05:25
INR 1.07 07/14/25 05:25
APTT 22.0 Sec (23.4-35.0) L 07/14/25 05:25
Vital Signs
Vital Signs
Temp Pulse Resp BP Pulse Ox
97.9 F 90 16 112/64 95
07/16/25 04:44 07/16/25 04:43 07/16/25 04:44 07/16/25 04:43 07/16/25 04:44
CT Intake/Output/Weight
07/15/25 07/15/25 07/16/25
06:59 18:59 06:59
Intake Total 1240 / 1240
Output Total 170 / 830 790 / 1405 615 / 1405
Balance -170 / -830 450 / -165 -615 / -165
SaO2: 95
Physical Exam
-
General: Awake and Oriented
Cardiovascular: Regular rate & rhythm
Respiratory: Clear and Decreased Breath Sounds
Incision: Clean, Dry and Intact
Extremities: No Edema
Data Reviewed
-
Lab Results: Results Reviewed
Medications: Active Meds Reviewed
Chest X-Ray: Report Reviewed
ECG: Report Reviewed
--- NOTE | 2025-07-16 06:19 | PTCARENOTE ---
Patient refused to stand for daily weight. Patient encouraged and educated on importance of accurate daily weights. Bed weight taken.
[2025-07-16] MEDS: TYLENOL PO (06:22)
[2025-07-16] MEDS: RESTASIS 0.05% OPHTHALMIC EMULSION 1 DROPS BOTH EYES ×2 (08:22→20:10)
[2025-07-16] MEDS: DITROPAN 5 MG PO (08:22)
[2025-07-16] MEDS: PROTONIX 40 MG PO (08:22)
[2025-07-16] MEDS: SENOKOT-S 1 TABLET PO ×2 (08:22→20:10)
[2025-07-16] MEDS: NEURONTIN 100 MG PO ×3 (08:22→22:22)
[2025-07-16] MEDS: LOTRIMIN 1% CREAM 1 APPLIC TOPICAL ×2 (08:23→20:10)
--- NOTE | 2025-07-16 08:45 | PTCARENOTE ---
assumed care of pt from previous shift RN, sinus rhythm on tele, VSS. Lungs course, loose cough w brown sputum. IS reviewed and pt achieved up to 500. pt assisted from bed to chair, purewick removed. pt tolerating PO intake. Surgical site and CT
sites WNL, serosanguineous drainage from tubes. Pt denies pain. Plan of care reviewed and questions encouraged.
--- NOTE | 2025-07-16 12:06 | PTCARENOTE ---
pt ambulating in room with assist of 1, tubes maintained on suction. Pt tolerated, VSS, sinus rhythm maintained.
[2025-07-16] MEDS: ROXICODONE 5 MG PO (14:00)
[2025-07-16] MEDS: TYLENOL 1000 MG PO ×2 (14:01→22:22)
--- NOTE | 2025-07-16 15:12 | PTCARENOTE ---
Patient received from Paulette RN; AAOx3, responds spontaneously to RN and follows commands; VSS; NSR on monitor; Friction rub present; +2 B/L LE edema; +2 DP and radial pulses; Shallow respirations; SpO2 95-100% on 2L NC; Coarse lung sounds
throughout; CTx2 connected to -20 cm wall suction draining serosanguineous drainage - no tidaling, crepitus, or air leak noted; + BS; Stress incontinence; Surgical sites intact; PIVx2; See nursing documentation for further information
[2025-07-16] MEDS: LOVENOX 40 MG SC (16:32)
--- NOTE | 2025-07-16 20:30 | PTCARENOTE ---
Patient received OOB in chair. Patient A+A+Ox3. No neurological deficits noted. No c/o headache, dizziness or lightheadedness. Patient assisted to bathroom to void with assist x1 and use of rolling walker. Slow, steady gait. No c/o pain or
discomfort. Mild ARITA. Patient assisted to bed. O2 2L via NC HS. SpO2 96-98%. Left lung field coarse. Two chest tubes intact - Anterior Pericardial 40 ml and Left Pleural 10 ml - Serosanguineous drainage - No air leak - Dressings intact. Sinus
Rhythm. Heart rate 80's. Blood pressure 96/58 (70). Patient with no c/o chest pain, pressure or discomfort. Normoactive bowel sounds. No BM. Bilateral lower extremity edema L>R. Positive, palpable pulses. Afebrile. Assessment as documented.
[2025-07-17] VITALS (7 sets, daily range): BP systolic 102–142; BP diastolic 57–99; BMI 37.6
--- NOTE | 2025-07-17 | PTCARENOTE ---
Patient sleeping without difficulty. No further changes from previous assessment.
--- NOTE | 2025-07-17 04:39 | W.PN.CT ---
Today's Communication / Plan
-
No significant issues overnight�
Consider �pericardial�(50/40 =90);�and�pleural�drains�(60/10 =70) can be DC
Plan for ECHO today, with possible removal of pericardial drain based off results
OOB/IS/Ambulate�
Assessment / Plan
-
- Recurrent pericardial effusion- s/p Left mini-anterolateral thoracotomy (~3.5cm); Pericardial window; Lysis of pericardial/apical adhesions; Drainage of pericardial effusion (~500mL) by Dr. Dangelo
on 07/14/25, pod #3
- Well-differentiated neuroendocrine tumor, WHO grade 2 - metastatic
- Lung CA
- Parkinson's dz with deep brain stimulator for tremors
- GERD
Subjective
-
Date of Service: July 17, 2025
Objective Data
-
Lab Results
07/16/25 04:41
07/16/25 04:41
PT 13.7 Sec (11.4-14.6) 07/14/25 05:25
INR 1.07 07/14/25 05:25
APTT 22.0 Sec (23.4-35.0) L 07/14/25 05:25
Vital Signs
Vital Signs
Temp Pulse Resp BP Pulse Ox
98.5 F 80 16 103/52 97
07/16/25 22:20 07/17/25 00:00 07/16/25 22:20 07/16/25 22:20 07/16/25 22:20
CT Intake/Output/Weight
07/16/25 07/16/25 07/17/25
06:59 18:59 06:59
Intake Total 240 / 480 240 / 480
Output Total 615 / 1405 1110 / 1160 50 / 1160
Balance -615 / -165 -870 / -680 190 / -680
SaO2: 97
Physical Exam
-
General: Awake
Cardiovascular: Regular rate & rhythm
Respiratory: Clear and Equal
Sternum: Stable
Incision: Clean, Dry and Intact
Extremities: No Edema
--- NOTE | 2025-07-17 05:00 | PTCARENOTE ---
Patient A+A+Ox3. No c/o pain or discomfort. Patient assisted to bathroom with assist x1 and use of rolling walker. Voided 300 ml delisa urine. Patient washed face and brushed teeth. OOB to chair. Chest tube outputs as documented. Standing
scale weight 93.1 kg. Assessment/Interventions as documented.
[2025-07-17] MEDS: TYLENOL PO ×3 (06:00→23:00)
--- NOTE | 2025-07-17 08:00 | PTCARENOTE ---
Resumed care of patient from prev RN. NSR HR 80s. SpO2 96% RA. Left lung field coarse. VSS. CTx2 -20 suction minimal drainage. SOB with exert. + bowel sounds. No BM. Good appetite. stress inc. pad applied. Bilateral lower extremity edema L>R.
Positive pulses. will continue to monitor
[2025-07-17] MEDS: PROTONIX 40 MG PO (09:34)
[2025-07-17] MEDS: DITROPAN 5 MG PO (09:34)
[2025-07-17] MEDS: SENOKOT-S 1 TABLET PO ×2 (09:34→19:58)
[2025-07-17] MEDS: NEURONTIN 100 MG PO ×3 (09:34→23:05)
[2025-07-17] MEDS: LOTRIMIN 1% CREAM TOPICAL (09:35)
[2025-07-17] MEDS: RESTASIS 0.05% OPHTHALMIC EMULSION BOTH EYES ×2 (09:36→19:59)
--- NOTE | 2025-07-17 10:26 | PTCARENOTE ---
d/c chest tube without incident as ordered. Echo done bedside.
--- NOTE | 2025-07-17 11:49 | CM ---
dc plan remains home when medically stable with f/u with ct transitional care nurse after dc
--- NOTE | 2025-07-17 16:00 | PTCARENOTE ---
no additional changes in assessment.
[2025-07-17] MEDS: TYLENOL 1000 MG PO ×2 (16:44→23:05)
[2025-07-17] MEDS: LOVENOX 40 MG SC (16:54)
[2025-07-17] MEDS: LOTRIMIN 1% CREAM 1 APPLIC TOPICAL (19:58)
--- NOTE | 2025-07-17 20:00 | PTCARENOTE ---
Assumed care of patient at 1900. Patient found oob in chair with family in room at time of assessment. Patient is AOx4, follows commands appropriately, moves all extremities. Assistx1 with RW. Lung sounds are diminished in the bases and coarse
through left side, saO2 95% on RA. CTx1: R mediastinal draining straw colored drainage. Heart sounds are audible, patient is SR with PVCs, +pulses, +1RLE and +2 LLE. Active BS, patient reports constipation, voiding clear yellow in bathroom. Patient
has L axillary incision with aquacell dressing CDI, skin tear over abdomen with foam dressing, and ABD dressing over CT wounds CDI. VSS. Call covington within reach.
[2025-07-17] MEDS: NEURONTIN PO (23:00)
--- NOTE | 2025-07-18 | PTCARENOTE ---
Patient reassessed. VSS. Call covington within reach.
--- NOTE | 2025-07-18 00:46 | W.PN.CT ---
Today's Communication / Plan
-
Plan:
-No issues overnight. Hemodynamically and neurologically intact
-Repeat echo yesterday showed trivial pericardia effusion, LVEF 60-65%
-Monitor pericardial drain (dumped 95 mL this AM when OOB): 95/125
-OOB into chair/Ambulate
-F/u pathology
�
Assessment / Plan
-
- Recurrent pericardial effusion- s/p Left mini-anterolateral thoracotomy (~3.5cm); Pericardial window; Lysis of pericardial/apical adhesions; Drainage of pericardial effusion (~500mL) by Dr. Dangelo
on 07/14/25, pod #4
- Well-differentiated neuroendocrine tumor, WHO grade 2 - metastatic
- Lung CA
- Parkinson's dz with deep brain stimulator for tremors
- GERD
Discussed patient care with: Cardiology, Nursing, Respiratory Therapy, Pharmacy and Care Team
Subjective
-
Date of Service: July 18, 2025
Pt c/o mild incisional pain, otherwise feels well
Objective Data
-
Lab Results
07/16/25 04:41
07/16/25 04:41
PT 13.7 Sec (11.4-14.6) 07/14/25 05:25
INR 1.07 07/14/25 05:25
APTT 22.0 Sec (23.4-35.0) L 07/14/25 05:25
Vital Signs
Vital Signs
Temp Pulse Resp BP Pulse Ox
98 F 77 18 137/57 95
07/17/25 20:00 07/17/25 22:00 07/17/25 20:00 07/17/25 19:50 07/17/25 20:00
CT Intake/Output/Weight
07/17/25 07/17/25 07/18/25
06:59 18:59 06:59
Intake Total 240 / 480
Output Total 460 / 1570 305 / 305 0 / 305
Balance -220 / -1090 -305 / -305 0 / -305
SaO2: 95 (RA)
Physical Exam
-
General: Awake, Oriented and AOx3
Cardiovascular: Regular rate & rhythm, No Murmurs, No Rub and No Gallop
Respiratory: Clear
Sternum: Stable
Extremities: No Edema
Data Reviewed
-
Lab Results: Results Reviewed
Medications: Active Meds Reviewed
Chest X-Ray: Report Reviewed and Image Reviewed
ECG: Report Reviewed and Image Reviewed
[2025-07-18 04:29] VITALS: BP 122/62
[2025-07-18 06:00] VITALS: BMI 37.2
[2025-07-18] MEDS: TYLENOL 1000 MG PO ×2 (06:15→14:37)
[2025-07-18] MEDS: ROXICODONE 10 MG PO (06:21)
--- NOTE | 2025-07-18 07:49 | PTCARENOTE ---
Patient with extreme pain exacerbation overnight. Reported as radiating from neck to left flank around CT wound position. On assessment of site no hard masses or tenderness on palpation detected at site of reported pain. Patient reports 'pain is
deeper'. This flare up of pain was associated with dump of CT that measured 95 mL out after no measurable output for rest of night. Assisted patient with ambulation to bathroom. Upon return to chair patient ordered dilaudid medication, but
difficulty with IV site prevented administration. Patient instead given 10 Odilia per prn parameters. According to patient pain is 'subsiding'. Resting oob in chair at this time.
--- NOTE | 2025-07-18 08:00 | PTCARENOTE ---
Assumed care of patient from prev RN. Patient resting in bed at time of assessment. AAOx3. NSR hR 80s. +pulses, +1RLE and +2 LLE. Diminished lung sounds at bases. pulse ox 94% on RA. CTx1to be d/c'd this AM. + BS, No BM. BRP. All surgical sites
c/d/i, foam dressing covering abd skin tear. Will continue to monitor.
[2025-07-18 08:40] VITALS: BP 152/77
--- NOTE | 2025-07-18 09:05 | PTCARENOTE ---
d/c chest tube with [employer] Brittany at bedside without issue. will continue to monitor.
[2025-07-18] MEDS: RESTASIS 0.05% OPHTHALMIC EMULSION 1 DROPS BOTH EYES (09:20)
[2025-07-18] MEDS: DITROPAN 5 MG PO (09:21)
[2025-07-18] MEDS: PROTONIX 40 MG PO (09:21)
[2025-07-18] MEDS: LOTRIMIN 1% CREAM TOPICAL (09:21)
[2025-07-18] MEDS: NEURONTIN 100 MG PO ×2 (09:21→17:46)
[2025-07-18] MEDS: SENOKOT-S 1 TABLET PO ×2 (09:21→19:57)
[2025-07-18 12:52] VITALS: BP 148/66
--- NOTE | 2025-07-18 16:13 | PTCARENOTE ---
VSS. no additional changes in assessment at this time. pt for hopeful d/c tomorrow. will continue to monitor,
[2025-07-18] MEDS: LOVENOX 40 MG SC (17:46)
[2025-07-18 17:53] VITALS: BP 95/62
[2025-07-18] MEDS: CITROMA 300 ML PO (19:56)
[2025-07-18] MEDS: LOTRIMIN 1% CREAM 1 APPLIC TOPICAL (19:56)
[2025-07-18] MEDS: RESTASIS 0.05% OPHTHALMIC EMULSION BOTH EYES (19:57)
--- NOTE | 2025-07-18 20:00 | PTCARENOTE ---
Assumed care of patient at 1900. Patient found resting in bed at time of assessment. Patient is AOx4, follows commands appropriately, moves all extremities. Lung sounds are diminished in the bases, coarse on L side, saO2 94% on RA. Heart sounds are
audible, patient is SR with PVCs on the monitor, normal palpable pulses, and +2 LLE edema trace RLE edema. +BS and voiding in the bathroom. Reports constipation given mag citrate to aid. Patient has PIV in L wrist. There is an incision on the L
axilla with aquacell dressing that is CDI and 4x4 gauze dressing over CT wounds that is CDI. VSS. Call covington within reach.
[2025-07-18 20:20] VITALS: BP 149/62
[2025-07-18 22:30] VITALS: BP 127/60
[2025-07-18] MEDS: NEURONTIN PO (22:37)
[2025-07-18] MEDS: TYLENOL PO (22:37)
--- NOTE | 2025-07-18 23:45 | W.PN.CT ---
Today's Communication / Plan
-
Plan:
-No issues overnight. Hemodynamically and neurologically intact
-Repeat echo 07/17 showed trivial pericardia effusion, LVEF 60-65%
-Pericardial drain was dcd 07/18
-on Lovenox for DVT prophylaxis
-follow am CXR
-OOB into chair/Ambulate
-F/u pathology (pending)
-possible d/c home
Assessment / Plan
-
- Recurrent pericardial effusion- s/p Left mini-anterolateral thoracotomy (~3.5cm); Pericardial window; Lysis of pericardial/apical adhesions; Drainage of pericardial effusion (~500mL) by Dr. Dangelo
on 07/14/25, pod #5
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
- Lung CA
- Parkinson's dz with deep brain stimulator for tremors
- GERD
Discussed patient care with: Nursing and Care Team
Subjective
-
Date of Service: July 18, 2025
Objective Data
-
Lab Results
07/16/25 04:41
07/16/25 04:41
PT 13.7 Sec (11.4-14.6) 07/14/25 05:25
INR 1.07 07/14/25 05:25
APTT 22.0 Sec (23.4-35.0) L 07/14/25 05:25
Vital Signs
Vital Signs
Temp Pulse Resp BP Pulse Ox
98.1 F 80 18 127/60 96
07/18/25 22:37 07/18/25 22:30 07/18/25 22:37 07/18/25 22:30 07/18/25 22:37
CT Intake/Output/Weight
07/18/25 07/18/25 07/19/25
06:59 18:59 06:59
Intake Total 240 / 240
Output Total 95 / 400
Balance -95 / -400 240 / 240
SaO2: 96
Physical Exam
-
General: Awake and AOx3
Cardiovascular: Regular rate & rhythm and No Murmurs
Respiratory: Decreased Breath Sounds
Incision: Clean, Dry and Dressing Intact
Extremities: No Edema
Abdomen: soft, nontender, nondistended, + bowel sounds, no BM yet. Denies nausea
Data Reviewed
-
Lab Results: Results Reviewed
Medications: Active Meds Reviewed
Chest X-Ray: Report Reviewed and Image Reviewed
ECG: Report Reviewed and Image Reviewed
--- NOTE | 2025-07-19 | PTCARENOTE ---
Patient reassessed. VSS. Call covington within reach.
[2025-07-19 03:16] VITALS: BP 130/69
[2025-07-19 06:00] VITALS: BMI 37.6
[2025-07-19] MEDS: TYLENOL 1000 MG PO (06:24)
--- NOTE | 2025-07-19 06:45 | PTCARENOTE ---
Patient reassessed. VSS. OOB to chair. Successful BM overnight. Voiding. Plan for discharge.
[2025-07-19 07:56] VITALS: BP 116/68
--- NOTE | 2025-07-19 08:29 | W.DCSUMMARY ---
Discharge Summary
Discharge Data
Date of Admission: 07/13/25
Date of Discharge: 07/19/25
-
Pending Results: No
Hospital Course
Primary care physician: Bessie Monte
Outpatient baker head: none
Inpatient consultants: hospitalist
Procedures:
1. pericardial window and lysis of pericardial/apical adhesions
Primary Diagnosis:
1. Recurrent pericardial effusion due to well-differentiated neuroendocrine tumor, WHO grade 2 - metastatic
Secondary Diagnoses:
1. Parkinson's dz with deep brain stimulator for tremors
2. GERD
HPI: 79 year old female with known well-differentiated neuroendocrine tumor, WHO grade 2 - metastatic and recurrent pericardial effusions requiring drainage. She had a outpatient echocardiogram that reported increased pericardial effusion and was
referred to [facility] ED. She reports increasing shortness of breath with exertion.
Hospital course: Patient was taken to the operating room and underwent a left mini-anterolateral thoracotomy for pericardial window and lysis of pericardial/apical adhesions with drainage of pericardial effusion (~500mL) b Dr. Joseph Dangelo. For
further details, please see operative note. Lovenox prophylaxis was initiated. Pericardial drain was removed on postop day 3. Follow-up TTE reported trace pericardial effusion. Left pleural chest tube was removed on postoperative day #4, patient
ambulated in halls without difficulty. Chest x-ray remained stable postoperative day #5 and patient was deemed stable for discharge home.
Home medication changes:
Pain management: Gabapentin x 10 days and Oxycodone prn
Discharge Plan
-
Patient Disposition: Home (Routine Discharge)
Discharge Diagnosis/Procedures: pericardial window (07/14/25)
Condition: Fair
Diet: Regular
Activity: No strenuous activity
Driving Restrictions: No driving for 2 weeks
Bathing Restrictions: OK to Shower
Specialty Instructions: Weigh Daily- Call MD for wt gain/loss 3 lbs overnight/5 lbs in 1 week
Referrals:
CT Transitional Care Nurse [Outside]
Referral Note: The Cardiothoracic Transitional Care Nurse will call you to set up a visit in 1-2 days.
Bessie Monte DO [Family Provider, Internal Medicine]
Joseph Dangelo MD [Active, Cardiac Surgery] - 07/25/25 3:00 pm
Prescriptions:
New
gabapentin 100 mg Capsule
100 mg PO TID Qty: 30 0RF
oxycodone 5 mg Tablet
5 mg PO Q4HPRN PRN (Reason: severe pain) Qty: 10 0RF
Continued
pantoprazole 40 mg Tablet,Delayed Release (Dr/Ec)
40 mg PO DAILY
calcium carbonate [Tums] 200 mg calcium (500 mg) Tablet,Chewable
200 mg PO DAILY
oxybutynin chloride 5 mg Tablet
5 mg PO DAILY
clotrimazole 1 % Cream
1 applic TOPICAL BID
cholecalciferol (vitamin D3) [Vitamin D3] 25 mcg (1,000 unit) Tablet
25 mcg PO DAILY
cyclosporine 0.05 % Drops
1 drp BOTH EYES Q12H
Discharge Orders:
Discharge Patient (As Directed); Ordered 07/19/25
Ordered By: Brittany Valdez
Care Plan Goals
Care Plan Goals:
Problem: Readiness for enhanced knowledge related to diagnosis and treatment plan
Goal: Understand your diagnosis and treatment plan needs, including medications if applicable.
Instructions: Know your diagnosis, underlying causes and treatment plan options, including medications if applicable. Consult with your health care team to learn about your diagnosis and treatment plan, including medications if applicable.
Discharge Date and Time
Print Language: ROMANIAN
[2025-07-19] MEDS: SENOKOT-S 1 TABLET PO (08:30)
[2025-07-19] MEDS: DITROPAN 5 MG PO (08:30)
[2025-07-19] MEDS: NEURONTIN 100 MG PO (08:30)
[2025-07-19] MEDS: PROTONIX 40 MG PO (08:30)
[2025-07-19] MEDS: LOTRIMIN 1% CREAM TOPICAL (08:31)
[2025-07-19] MEDS: RESTASIS 0.05% OPHTHALMIC EMULSION 1 DROPS BOTH EYES (08:31)
--- NOTE | 2025-07-19 08:41 | PTCARENOTE ---
Patient received from warehouse worker 2nd shift resting oob in chair, AAO x 3, denies pain. NSR via cm, SaO2 @ 94% on RA. All procedural sites stable. Patient updated to plan of care for the day including probably d/c home, in agreement. See work list for full
assessment and interventions performed.
--- NOTE | 2025-07-19 10:40 | PTCARENOTE ---
Patient minimally assisted to change, urged to shower but wishes to at home. PIV removed. Discharge instructions thoroughly reviewed w/patient and spouse, all questions answered. Patient and all belongings transported to waiting vehicle via
wheelchair for d/c home.
== END 2025-07-19 11:04 | disposition home or self-care (01) | DRG 827 ==
LOC: CVICU 15:22
PROVIDERS: Clinical Nurse Specialist Acute Care; Emergency Medicine; Nurse Practitioner; Physician Assistant Medical; ADMITTING PHYSICIAN Hospitalist; ATTENDING PHYSICIAN Thoracic Surgery (Cardiothoracic Vascular Surgery); EMERGENCY PHYSICIAN Emergency Medicine; FAMILY PHYSICIAN Internal Medicine Critical Care Medicine
PROC: 0W9D00Z Drainage of Pericardial Cavity with Drainage Device, Open Approach (ICD-10-PCS; 2025-07-14)
PROC: 02NN0ZZ Release Pericardium, Open Approach (ICD-10-PCS; 2025-07-14)
DX: C7A.8 Other malignant neuroendocrine tumors (principal); I31.0 Chronic adhesive pericarditis; I31.31 Malignant pericardial effusion in diseases classified elsewhere; C34.12 Malignant neoplasm of upper lobe, left bronchus or lung; C7B.8 Other secondary neuroendocrine tumors; G20.A1 Parkinson's disease without dyskinesia, without mention of fluctuations; K21.9 Gastro-esophageal reflux disease without esophagitis; R91.8 Other nonspecific abnormal finding of lung field; I95.81 Postprocedural hypotension; D72.829 Elevated white blood cell count, unspecified; Z87.01 Personal history of pneumonia (recurrent)
CPT/HCPCS: 32505; 71045; 80048; 80053; 81003; 81015; 82248; 83036; 83605; 83880; 84484; 85025; 85027; 85610; 85730; 86850; 86900; 86901; 86920; 88112; 88305; 88341; 88342; 93005; 93306; 93308; 93321; 93325; 94010; 94060; 99285